=== PATIENT | female | born 1950 | race Caucasian/White ===

== ENCOUNTER 2024-11-21 22:15 | Inpatient (IN) ==
--- NOTE | 2024-11-22 04:06 | History & Physical Report ---
Date of Service November 22, 2024 Assessment & Plan (1) COPD exacerbation: (2) Acute respiratory failure with hypoxia and hypercapnia: (3) Aspiration pneumonia: (4) History of total hip replacement: (5) Severe protein-calorie malnutrition: (6) T2DM (type 2 diabetes mellitus): (7) Macrocytic anemia: Plan 74 year old female with severe COPD presents as a transfer from [facility] with progressive respiratory failure for last 1-2 days. #COPD exacerbation / aspiration pneumonia / acute respiratory failure with hypoxia hypercapnia Duoneb, guaifenesin, incentive spirometer, flutter valve, sputum culture, formoterol/budesonide neb, Incruse Ellipta, ensifentrine, Solu-medrol 40mg IV BID I am unclear why she is on carvedilol but given her severe COPD could consider stopping this as long as EF looks ok therefore will get TTE in AM Consult pulmonology CT being uploaded to synapse not independently reviewed but reportedly concerning for aspiration pneumonia - start Unasyn + azithromycin, repeat CXR ordered Continue BiPAP (increase settings to 12/5) given ongoing respiratory acidosis secondary to hypercapnia, repeat VBG around 8am #Severe protein-calorie malnutrition Stop Jardiance - this medication causes weight loss and should be permanently discontinued Stop simvastatin Analysis Specialist consult Thiamine with AM labs #T2DM Novolog for correction only Consult pharmacy for glycemic control Stop Jardiance as above HbA1C with AM labs #HTN Continue carvedilol and lisinopril (consider discontinuation of carvedilol as above) #Macrocytic anemia B12 and foalte with AM labs VTE Prophylaxis - Lovenox 30mg SQ daily (prescribed BID as outpatient for prophyalxis s/p THR however I believe this was prescribed incorrectly as she has know clot) Diet - NPO (expect ice chips and sips) pending SLT consult Disposition - admit to PCU Admission and Anticipated Discharge Date Admission Date: November 22, 2024 History of Present Illness Primary Care Provider: Julio Cesar eHrbertrand Cherelle Bergeron is a 74 year old female who presents as a transfer from [facility] for acute hypoxic hypercapnic respiratory failure with COPD exacerbation and concern for aspiration pneumonia. She reports two days of generalized illness with feeling sluggish and generalized weakness. While doing physical therapy yesterday she thought she was doing much worse and therefore advised her to go to the ER. She has severe COPD on baseline 2LPM O2 and feels short of breath every now and again but with hindsight this was also worse the last 2 days. She has a productive cough which is clear. Some coughing after drinking just for the last day. No chest pain, abdominal pain, nausea, vomiting, change in bowels. She notes increased swelling of her left leg following hip operation 3 weeks ago. In the ER she had duonebs which helped her breathing significantly. CT was concerning for aspiration pneumonia and she was given ceftriaxone + metronidazole + azithromycin. Given her poor respiratory status with respiratory acidosis secondary to hypercapnia transfer from [facility] was advised and given her psych coordinator are Sue Kwan she requested transfer here. On transfer call it was advised to start IV steroids and she was given Solu-Medrol 60mg IV. She was placed on BiPAP 05/21 with improvement CO2 retention initially VBG pH 7.25, PvCO2 100. Followed by ABG pH 7.30 -> 7.32 -> 7.34, pCO2 82 -> 75 -> 62 She reports taking all her usual medications. Allergies Allergy/AdvReac Type Severity Reaction Status Date / Time Sulfa (Sulfonamide AdvReac Unknown UNKNOWN Verified 11/22/24 04:08 Antibiotics) metformin AdvReac Unknown Verified 11/22/24 04:08 Home Medications Medication Instructions Recorded Confirmed Type carvedilol 12.5 mg tablet 12.5 mg PO BID 03/28/19 11/22/24 History citalopram 20 mg tablet 20 mg PO DAILY 03/28/19 11/22/24 History garlic 1,000 mg capsule 1,000 mg PO DAILY 03/28/19 11/22/24 History nebulizer accessories #1 ea 10/30/20 11/22/24 Rx nebulizers #1 ea 10/30/20 11/22/24 Rx ipratropium 0.5 mg-albuterol 3 mg 3 ml inhalation Q4H PRN COPD #360 12/05/20 11/22/24 Rx (2.5 mg base)/3 mL nebulization mL soln simvastatin 20 mg tablet 20 mg PO HS 01/03/22 11/22/24 History Oxygen Home #1 ea 01/12/24 11/22/24 Rx Portable Oxygen #1 ea 01/12/24 11/22/24 Rx umeclidinium 62.5 mcg-vilanterol 1 inh inhalation DAILY #3 Inhalers 01/12/24 11/22/24 Rx 25 mcg/actuation powdr for inhalation (Anoro Ellipta) Oxygen Home #1 ea 06/02/24 11/22/24 Rx albuterol sulfate 90 mcg/actuation 2 puff inhalation QID PRN 07/25/24 11/22/24 Rx aerosol inhaler shortness of breath or wheezing #8.5 grams empagliflozin 10 mg tablet 10 mg PO DAILY 10/19/24 11/22/24 History (Jardiance) ipratropium 20 mcg-albuterol 100 1 puff inhalation Q6H PRN 10/19/24 11/22/24 Rx mcg/actuation mist for inhalation shortness of breath or wheezing #3 (Combivent Respimat) Inhalers lisinopril 40 mg tablet 20 mg PO DAILY 10/19/24 11/22/24 History ensifentrine 3 mg/2.5 mL 3 mg (2.5 mL) inhalation BID #150 11/08/24 11/22/24 Rx suspension for nebulization mL (Ohtuvayre) ascorbic acid (vitamin C) 500 mg 500 mg PO BID 11/22/24 11/22/24 History tablet (Vitamin C) calcium 500 mg (as 1 tab PO DAILY 11/22/24 11/22/24 History carbonate)-vitamin D3 5 mcg (200 unit) tablet (Oyster Shell Calcium-Vitamin D3) enoxaparin 30 mg/0.3 mL 30 mg subcut BID 11/22/24 11/22/24 History subcutaneous syringe insulin glargine U-300 conc 300 10 unit subcut DAILY 11/22/24 11/22/24 History unit/mL (3 mL) subcutaneous pen (Toujeo Max U-300 SoloStar) tramadol 50 mg tablet 50 mg PO Q4 PRN Pain 11/22/24 11/22/24 History Past Med/Surg History Problem List (Updated 11/22/24 @ 06:02 by Jean-Paul Narayan MD) Macrocytic anemia T2DM (type 2 diabetes mellitus) Severe protein-calorie malnutrition Aspiration pneumonia Acute respiratory failure with hypoxia and hypercapnia Advanced care planning/counseling discussion Multiple pulmonary nodules Hypoxemia Chronic obstructive pulmonary disease T12 compression fracture COPD exacerbation (Acute 10/03/14) Respiratory distress (Acute 10/03/14) Medical History (Updated 11/22/24 @ 06:02 by Jean-Paul Narayan MD) History of poliomyelitis Surgical History (Updated 11/22/24 @ 05:41 by Jean-Paul Narayan MD) History of total hip replacement History of tubal ligation History of appendectomy Family History (Updated 11/15/19 @ 08:48 by Shannon Valle, HAND BENDER) Father COPD (chronic obstructive pulmonary disease) Myocardial infarction Mother COPD (chronic obstructive pulmonary disease) Ovarian cancer Social History (Updated 01/03/22 @ 09:58 by FLAKO Kerns) Smoking Status: Former smoker Tobacco Type: Cigarettes Age Started Using Tobacco: 16; Age Quit Using Tobacco: 55; packs per day: 2; Hx Alcohol Use: Yes marital status: Seatbelt Use: always Review of Systems Review of Systems: All systems reviewed & are unremarkable except as noted in HPI & below Physical Exam Constitutional: well developed and + acute distress; + not well nourished Eyes: + anicteric sclerae; normal pupil size Strabismus present Respiratory: + respiratory distress, + labored breath ing, + uses accessory muscles, able to speak in complete sentences, + tachypneic and + prolonged expiratory phase Auscultation: + rhonchi (throughout) and + wheezes Cardiovascular: Rate/Rhythm: regular rhythm and + tachycardic Heart Sounds: no murmur Extremities: normal capillary refill and + pedal edema (1+ bilaterally equal pitting); no calf tenderness Gastrointestinal (Abdomen): normal bowel sounds, soft, nontender, no hepatosplenomegaly Musculoskeletal: no cyanosis or clubbing, extremities motor strength 5/5 Skin: no rashes, warm and dry Neurologic: moves all extremities and awake; not confused Psychiatric: A+Ox3, euthymic affect Results & Data Results & Data Laboratory Results Outside hospital labs: Hgb 11, WBC 5.8, MCV 107, Neutrophils 5.19, Plt, 275, Na 140, K 4.2, Lactic acid 0.8, HS Troponin I 16 and 19.4, ProBNP 113, Cr 0.7 Diagnostic Findings Outside hospital imaging 12/01/2024: XR Chest 1 view frontal Impression: 1. Hyperexpanded lungs without evident of acute cardiopulmonary disease 2. Hiatal hernia CT angiography Chest w/contrast Impression: 1. Multifocal consolidation involving both lungs, possibly related to aspiration 2. No evidence of pulmonary nodules 3. Moderate pulmonary emphysema 4. Severe chronic right hydronephrosis Code Status & VTE Plan Code Status DNR/DNI per patient wishes consistent with prior discussion in pulmonology note VTE Prophylaxis Plan VTE Prophylaxis will be ordered: Yes Critical Care Time Critical Care Time: Yes Total Critical Care Time: 40 PG Care Time/CCT Total # of Minutes Spent Total Time Spent with Patient: Total time spent is greater than 50% in coordination of care (as documented) at patient's floor/unit and/or counseling patient: Critical Care Time: Yes Total Critical Care Time: 40 Coding Level of Care Code 60647 INT INP/OBS CARE 3/75MIN Diagnoses COPD exacerbation J44.1 Acute respiratory failure with hypoxia and hypercapnia J96.01; J96.02 Aspiration pneumonia J69.0 History of total hip replacement Z96.649 Severe protein-calorie malnutrition E43 T2DM (type 2 diabetes mellitus) E11.9 Macrocytic anemia D53.9 Additional Codes Critical Care Time - Critical Care Time: Yes ([id number])
[2024-11-22 04:14] LABS: Base Excess VBG 9.8 mEq/L; HCO3 VBG 39 mmol/L; Oxygen Saturation VBG < 60.0 %; PCO2 VBG 78 mmHg (38-50); PO2 VBG 23 mmHg; pH VBG 7.31 (7.36-7.41)
[2024-11-22] MEDS ORDERED: GLUCOSE 10 TAB/TUBE PO PRN (04:23)
[2024-11-22] MEDS ORDERED: DEXTROSE 50% 50 ML SYRINGE IV PRN (04:23)
[2024-11-22] MEDS ORDERED: GLUCAGON FOR INJ 1 MG VIAL SQ PRN (04:23)
[2024-11-22] MEDS ORDERED: GLUCOSE 40% GEL 15 GM TUBE PO PRN (04:23)
[2024-11-22 04:24] LABS: Basophils # (auto) 0.02 K/uL (0.00-0.20); Basophils % (auto) 0.3 %; Hematocrit (blood only) 36.2 % (37.0-47.0); Hemoglobin 10.8 g/dl (12.0-16.0); Immature Granulocytes # (auto) 0.02 K/uL (0.01-0.20); Immature Granulocytes % (auto) 0.3 %; Lymphocytes # (auto) 0.35 K/uL (1.20-3.40); Lymphocytes % (auto) 5.6 %; Mean Corpuscular Hgb Conc 29.8 g/dL (32.0-36.0); Mean Corpuscular Volume 107.4 fL (80.0-100.0); Mean Platelet Volume 9.3 fL (9.4-12.4); Monocytes % (auto) 14.3 %; Neutrophils # (auto) 4.99 K/uL (1.40-6.50); Neutrophils % (auto) 79.5 %; Platelet Count 279 K/uL (130-400); RDW Coefficient of Variation 15.9 % (11.5-14.5); RDW Standard Deviation 63.1 fL (36.4-46.3); Red Blood Count 3.37 M/uL (4.20-5.40); White Blood Count 6.28 K/ul (4.8-10.8)
[2024-11-22 04:36] LABS: Albumin Globulin Ratio 1.5 (0.9-2); BUN Creatinine Ratio 40.8 (10-20); Bilirubin,Total 0.4 mg/dl (0.2-1.0); Globulin 2.6 gm/dl (2.5-4.0); Potassium 4.6 mmol/L (3.5-5.1); Total Protein 6.6 gm/dl (6.0-8.3)
[2024-11-22] MEDS: ALBUT/IPRATROP 3MG/0.5MG NEB 3 ML VIAL ONE (04:41)
[2024-11-22] MEDS: ALBUT/IPRATROP 3MG/0.5MG NEB 3 ML VIAL NEB STA (04:41)
[2024-11-22 04:49] LABS: Partial Thromboplastin Ratio 0.9; Partial Thromboplastin Time 25 Seconds (21-31); Prothrombin Time 10.6 Seconds (9.0-12.0)
--- NOTE | 2024-11-22 05:08 | XRay Report ---
EXAM: XR chest 1V portable CLINICAL HISTORY: Pneumonia. TECHNIQUE: An X-ray image of the chest is obtained in AP projection. COMPARISON: prior CT 12/30/2023 FINDINGS: Pulmonary Parenchyma: Accentuated lung markings. No evidence of consolidation, collapse, or focal opacities. No pulmonary nodules are identified. No evidence of pleural effusion or pleural thickening. Heart and Mediastinum: Average cardiac size. No mediastinal widening or masses. No hilar or mediastinal lymphadenopathy. Retro cadiac well defined opacity with air fluid level ( hiatus hernia ). Bony Thorax: Bony thorax appears intact without fractures or deformities. Soft Tissues: Soft tissues overlying the chest wall are unremarkable. IMPRESSION: 1. No gross airspace opacities. 2. Accentuated lung markings, likely secondary to emphysematus changes. 3. Retro cadiac well defined opacity with air fluid level ( hiatus hernia). 4. No significant interval changes. Electronically signed by Amari Miramontes 11-22-2024 05:08 AM
[2024-11-22] MEDS: AMPICILLIN/SULBACTAM SOD 3,000 MG/100 ML BAG IV SCH (06:03)
[2024-11-22] MEDS: INSULIN ASPART PER UNIT CHARGE SC SCH ×2 (06:06→17:15)
[2024-11-22 06:56] LABS: Influenza A virus by PCR Negative (Neg); Influenza B virus by PCR Negative (Neg); RSV by PCR Negative (Neg); SARS CoV2 RNA(COVID-19) Ceph NEGATIVE (Negative)
[2024-11-22] MEDS: ALBUT/IPRATROP 3MG/0.5MG NEB 3 ML VIAL NEB SCH (07:01)
--- NOTE | 2024-11-22 07:27 | Pulmonary Consultation ---
Date of Consultation November 22, 2024 Assessment & Plan (1) COPD exacerbation: (2) Respiratory distress: (3) Acute on chronic respiratory failure with hypoxia and hypercapnia: (4) Severe protein-calorie malnutrition: (5) Advanced care planning/counseling discussion: Plan IMPRESSION: 74-year-old female with a history of very severe COPD, exertional hypoxemia, multiple pulmonary nodules who is admitted in the setting of acute on chronic respiratory failure with hypoxia and hypercapnia with concerns for ongoing aspiration. RECOMMENDATIONS: 1. COPD exacerbation -unable to review labs. Would recommend full respiratory panel to assess for possible sources of the patient's respiratory distress. Chest x-ray without overt infiltrative process noted. She is bronchospastic on exam this morning. Unfortunately, as noted in the outpatient setting, the patient is an end-stage process including pulmonary cachexia, chronic hypoxia, and now with CO2 retention. Agree with nebulized forms of therapy including budesonide, Perforomist, DuoNebs, and hypertonic saline to help with airway clearing. Additionally, given her poor pulmonary status with an FEV1 of 21%, and combination with her CO2 retention, she would likely benefit from AVAPS therapy moving forward. Order placed at this time. She can wear this with sleep, naps, and with any respiratory distress. I did review the CTA from the outside institution dated 11/21/2024. It is not overly impressive for significant infiltrative process. She does have impressive emphysematous lung changes of which we were aware. No dense consolidation consistent with significant aspiration pneumonitis/pneumonia. Due to chronic respiratory failure consequent to COPD, patient now requires a noninvasive home ventilator. Bilevel therapy with and without a rate would be ineffective as patient requires a volume targeted mode. Ventilation is required to decrease work of breathing and improve pulmonary status. Interruption of ventilator support would lead to decline of health status. NIMV settings should be AVAPS-AE; Breath rate: auto; Inspiratory time:auto; Sigh: off; PS min: 5; PS max 20; EPAP min: 5; EPAP max: 20; AVAPS rate: 20 During sleep and as needed. 2. Respiratory Distress -in the setting of COPD exacerbation. Agree with pulmonary toileting as above. AVAPS to offload work of breathing. 3. Possible aspiration -agree with FEDERAL APPELLATE LAW CLERK evaluation for management moving forward. 4. Pulmonary nodules - Multiple pulmonary nodules previously appreciated, however new suspicious nodule noted in the RIGHT lower lobe measuring 7 mm and spiculated in appearance. Most recent follow-up CT shows stability of this area and likely more employer relations representative of scarring in the lung which makes more sense. She thankfully is without any concerning beta symptoms or other worsening infiltrative findings on CT. Will arrange for follow-up CT in 1 years time. Order placed previously in the outpatient setting. 5. Advance care planning - Per office visit discussion on 10/19/2024: Given the patient's significant lung dysfunction in the setting of advanced, end stage COPD, I did elect to have a discussion with the patient within the presence of her regarding advance care planning moving forward, especially in light of her recent hospitalization. I did discuss with her that I am concerned that if her pulmonary status were to decline and necessitate the need for endotracheal intubation with mechanical ventilator, that I am genuinely concerned that she would be difficult to liberate from the ventilator and possibly even require advanced treatment up to and including tracheostomy and care home facility placement. Additionally, I reviewed with her that if her heart were to stop beating and require heroics, that even in the event that we were able to resuscitate her heart, the damage done to her chest and lungs would likely be catastrophic given her current state. She acknowledges this and mentions that she and her do have paperwork completed. I encouraged them to review their documents to make sure that they are up-to-date and in line with their wishes moving forward. Per discussion today, she reiterates DNR/DNI status. Unfortunately, the patient is also sustained a hip fracture secondary to fall within the last few weeks. I am generally concerned that this represents a continued decline in the patient's functional status. Low threshold for palliative consultation for goals of care planning moving forward. This may also be beneficial for management of her declining respiratory status moving forward as well. Thank you for allowing us to participate in the care of this pleasant patient. Pulmonary medicine will continue to follow along. Supervising Physician Co-Signing Physician Notes Patient seen and examined. EMR reviewed. Agree with assessment plan as noted by STACEY above. Will continue to follow. Prognosis guarded History of Present Illness Reason for Consultation: Respiratory Failure, COPD Requesting Physician: Dr. Narayan Attending Physician: Bossman Ross MD History of Present Illness Patient is a 74-year-old female who is well-known to me in the outpatient clinic with a significant history of severe, end-stage COPD, chronic hypoxia on 2 L nasal cannula at all times, and multiple pulmonary nodules who presented to the [facility] emergency department yesterday with an abrupt onset of shortness of breath, cough, and respiratory distress. She was seen and evaluated there and placed on BiPAP and received antibiotics as well as steroids and nebulizer treatments. She was transferred to [facility] for continuation of care given her primary roller mechanic group is here. She continued with BiPAP throughout the night. She is hypercarbic on VBG. Upon evaluation this morning, the patient is awake, alert, and oriented. She is complaining of dyspnea at rest. No chest pain or palpitations. She reports she is coughing up secretions, but unable to completely clear them. She has not been sick. She recently was hospitalized 3 weeks ago after a fall resulting in LEFT-sided hip fracture. She is status post orthopedic intervention and rehab stay. She had just returned home yesterday prior to her symptoms developing. She feels better this morning. She continues with a cough. She is still somewhat dyspneic at rest. She remains wheezy. Allergies Allergy/AdvReac Type Severity Reaction Status Date / Time Sulfa (Sulfonamide AdvReac Unknown UNKNOWN Verified 11/22/24 04:08 Antibiotics) metformin AdvReac Unknown Verified 11/22/24 04:08 Home Medications Medication Instructions Recorded Confirmed Type carvedilol 12.5 mg tablet 12.5 mg PO BID 03/28/19 11/22/24 History citalopram 20 mg tablet 20 mg PO DAILY 03/28/19 11/22/24 History garlic 1,000 mg capsule 1,000 mg PO DAILY 03/28/19 11/22/24 History nebulizer accessories #1 ea 10/30/20 11/22/24 Rx nebulizers #1 ea 10/30/20 11/22/24 Rx ipratropium 0.5 mg-albuterol 3 mg 3 ml inhalation Q4H PRN COPD #360 12/05/20 11/22/24 Rx (2.5 mg base)/3 mL nebulization mL soln simvastatin 20 mg tablet 20 mg PO HS 01/03/22 11/22/24 History Oxygen Home #1 ea 01/12/24 11/22/24 Rx Portable Oxygen #1 ea 01/12/24 11/22/24 Rx umeclidinium 62.5 mcg-vilanterol 1 inh inhalation DAILY #3 Inhalers 01/12/24 11/22/24 Rx 25 mcg/actuation powdr for inhalation (Anoro Ellipta) Oxygen Home #1 ea 06/02/24 11/22/24 Rx albuterol sulfate 90 mcg/actuation 2 puff inhalation QID PRN 07/25/24 11/22/24 Rx aerosol inhaler shortness of breath or wheezing #8.5 grams empagliflozin 10 mg tablet 10 mg PO DAILY 10/19/24 11/22/24 History (Jardiance) ipratropium 20 mcg-albuterol 100 1 puff inhalation Q6H PRN 10/19/24 11/22/24 Rx mcg/actuation mist for inhalation shortness of breath or wheezing #3 (Combivent Respimat) Inhalers lisinopril 40 mg tablet 20 mg PO DAILY 10/19/24 11/22/24 History ensifentrine 3 mg/2.5 mL 3 mg (2.5 mL) inhalation BID #150 11/08/24 11/22/24 Rx suspension for nebulization mL (Ohtuvayre) ascorbic acid (vitamin C) 500 mg 500 mg PO BID 11/22/24 11/22/24 History tablet (Vitamin C) calcium 500 mg (as 1 tab PO DAILY 11/22/24 11/22/24 History carbonate)-vitamin D3 5 mcg (200 unit) tablet (Oyster Shell Calcium-Vitamin D3) enoxaparin 30 mg/0.3 mL 30 mg subcut BID 11/22/24 11/22/24 History subcutaneous syringe insulin glargine U-300 conc 300 10 unit subcut DAILY 11/22/24 11/22/24 History unit/mL (3 mL) subcutaneous pen (Toujeo Max U-300 SoloStar) tramadol 50 mg tablet 50 mg PO Q4 PRN Pain 11/22/24 11/22/24 History Patient History Medical History (Updated 11/22/24 @ 09:00 by Evan Jansen PA-C) History of poliomyelitis Surgical History (Updated 11/22/24 @ 05:41 by Jean-Paul Narayan MD) History of total hip replacement History of tubal ligation History of appendectomy Family History (Updated 11/15/19 @ 08:48 by Shannon Valle, MINGO) Father COPD (chronic obstructive pulmonary disease) Myocardial infarction Mother COPD (chronic obstructive pulmonary disease) Ovarian cancer Social History (Updated 01/03/22 @ 09:58 by FLAKO Kerns) Smoking Status: Former smoker Tobacco Type: Cigarettes Age Started Using Tobacco: 16; Age Quit Using Tobacco: 55; packs per day: 2; Second Hand Exposure: No; Do You Dip or Chew Tobacco: No; Tobacco Cessation Education Requested by Patient: No Hx Alcohol Use: No Hx Substance Use: No Preferred Language: Mauritanian Communication Ability: Effective 3D Technologist Required: No Beliefs That Will Affect Care: None marital status: Current Living Situation: Spouse Other Information That Helps Us Care for You: No Feels Safe at Home: Yes Safety Concerns: Feels Safe At This Time Seatbelt Use: always Assistive Devices: Glasses, Hearing Aid - Bilateral, Oxygen - Continuous, Walker and Wheelchair Review of Systems Review of Systems: A complete 10 point review of systems was reviewed with the patient with pertinent positives and negatives as per history of present illness. All else were negative. Physical Exam Physical Exam: VITAL SIGNS Vital signs and nursing notes were reviewed. GENERAL 74-year-old cachectic appearing female appearing her stated age who is in mild respiratory distress. Communicates well with provider and answers questions appropriately. SKIN Without rashes or lesions. NOSE Midline and without cyanosis. MOUTH/OROPHARYNX Without perioral cyanosis. NECK Kyphotic appearing LUNGS Dyspnea at rest. Conversationally dyspneic. Chest wall evaluation demonstrates increased chest wall A:P diameter. Auscultation reveals scant wheezes throughout. Distant breath sounds. CARDIAC RRR with S1/S2. No murmur, rubs, or gallops appreciated. ABDOMEN Abdominal inspection demonstrates a flat abdomen. BS normoactive all four quadrants. No tenderness, palpable masses, or ascites noted. EXTREMITIES Nail clubbing not present. No peripheral cyanosis. No pretibial edema present. +3/5 radial palpated throughout. PSYCH A&Ox3 and cooperates fully with examiner. Pt is very pleasant and interacts well with examiner. Results & Data Results & Data Vital Signs (Past 12 Hours) Vital Signs Temp Pulse Pulse Resp BP Pulse Ox O2 Del Method 11/22/24 07:03 113 H 30 H 93 11/22/24 07:01 113 H 30 H 93 BiPAP 11/22/24 04:28 113 H 30 H 92 11/22/24 04:28 113 H 30 H 93 BiPAP 11/22/24 03:44 112 H 11/22/24 03:37 36.7 C 94 H 20 140/72 96 BiPAP 11/22/24 03:28 BiPAP 11/22/24 02:28 112 H 30 H 98 FiO2 11/22/24 07:03 40 11/22/24 07:01 40 11/22/24 04:28 40 11/22/24 04:28 40 11/22/24 03:44 11/22/24 03:37 11/22/24 03:28 11/22/24 02:28 30 PG Care Time/CCT Total # of Minutes Spent Total Time Spent with Patient: Total time spent is greater than 50% in coordination of care (as documented) at patient's floor/unit and/or counseling patient: Coding Level of Care Code 86971 INT INP/OBS CARE 2/55MIN Diagnoses COPD exacerbation J44.1 Respiratory distress R06.03 Acute on chronic respiratory failure with hypoxia and hypercapnia J96.21; J96.22 Severe protein-calorie malnutrition E43 Advanced care planning/counseling discussion Z71.89
[2024-11-22 07:42] LABS: Base Excess VBG 6.4 mEq/L; HCO3 VBG 35 mmol/L; Oxygen Saturation VBG 73.1 %; PCO2 VBG 72 mmHg (38-50); PO2 VBG 44 mmHg
[2024-11-22] MEDS ORDERED: methylPREDNISolone 125 MG/2 ML VIAL IV SCH (09:00)
[2024-11-22] MEDS: UMECLIDINIUM BROMIDE 62.5MCG/BLISTER 7 PUFFS/INHALER INH SCH (09:08)
[2024-11-22] MEDS: methylPREDNISolone 40 MG in SYRINGE 0 ML IV SCH (09:08)
[2024-11-22] MEDS: ENOXAPARIN INJ 30 MG/0.3 ML SYR SQ SCH (10:50)
[2024-11-22] MEDS: carvediloL 12.5 MG TAB PO SCH (10:50)
[2024-11-22] MEDS: guaiFENesin 600 MG TABCR PO SCH (10:50)
[2024-11-22] MEDS: CITALOPRAM 20 MG TAB PO SCH (10:50)
[2024-11-22] MEDS: lisinopril 20 MG TAB PO SCH (10:50)
[2024-11-22] MEDS: AZITHROMYCIN 250 MG TAB PO SCH (10:50)
[2024-11-22] MEDS: ACETAMINOPHEN 500 MG TAB PO PRN (11:48)
--- NOTE | 2024-11-22 12:31 | Hospitalist Progress Note ---
Date of Service November 22, 2024 Assessment & Plan (1) COPD exacerbation: (2) Acute respiratory failure with hypoxia and hypercapnia: (3) Aspiration pneumonia: (4) History of total hip replacement: (5) Severe protein-calorie malnutrition: (6) T2DM (type 2 diabetes mellitus): (7) Macrocytic anemia: Plan 74 year old female with severe COPD presents as a transfer from [facility] with progressive respiratory failure for last 1-2 days. #COPD exacerbation / aspiration pneumonia / acute respiratory failure with hypoxia hypercapnia Duoneb, guaifenesin, incentive spirometer, flutter valve, sputum culture, formoterol/budesonide neb, Incruse Ellipta, ensifentrine, Solu-medrol 40mg IV BID I am unclear why she is on carvedilol but given her severe COPD could consider stopping this as long as EF looks ok therefore will get TTE in AM Consult pulmonology CT being uploaded to synapse not independently reviewed but reportedly concerning for aspiration pneumonia - start Unasyn + azithromycin, repeat CXR ordered Continue BiPAP (increase settings to 12/5) given ongoing respiratory acidosis secondary to hypercapnia, repeat VBG around 8am #Severe protein-calorie malnutrition Stop Jardiance - this medication causes weight loss and should be permanently discontinued Stop simvastatin [employer] consult Thiamine with AM labs #T2DM Novolog for correction only Consult pharmacy for glycemic control Stop Jardiance as above HbA1C with AM labs #HTN Continue carvedilol and lisinopril (consider discontinuation of carvedilol as above) #Macrocytic anemia B12 and foalte with AM labs VTE Prophylaxis - Lovenox 30mg SQ daily (prescribed BID as outpatient for prophyalxis s/p THR however I believe this was prescribed incorrectly as she has know clot) Diet - NPO (expect ice chips and sips) pending SLT consult Disposition - admit to PCU Admission and Anticipated Discharge Date Admission Date: November 22, 2024 Results & Data Results & Data Vital Signs (Past 12 Hours) Vital Signs Temp Pulse Pulse Resp BP Pulse Ox O2 Del Method 11/22/24 11:55 36.7 C 105 H 22 146/70 H 88 L Nasal Cannula 11/22/24 10:06 113 H 22 97 Nasal Cannula 11/22/24 09:19 Nasal Cannula 11/22/24 07:12 36.4 C L 106 H 20 131/70 100 BiPAP 11/22/24 07:03 113 H 30 H 93 11/22/24 07:01 113 H 30 H 93 BiPAP 11/22/24 04:28 113 H 30 H 92 11/22/24 04:28 113 H 30 H 93 BiPAP 11/22/24 03:44 112 H 11/22/24 03:37 36.7 C 94 H 20 140/72 96 BiPAP 11/22/24 03:28 BiPAP 11/22/24 02:28 112 H 30 H 98 O2 Flow Rate FiO2 11/22/24 11:55 2 11/22/24 10:06 2 11/22/24 09:19 11/22/24 07:12 11/22/24 07:03 40 11/22/24 07:01 40 11/22/24 04:28 40 11/22/24 04:28 40 11/22/24 03:44 11/22/24 03:37 11/22/24 03:28 11/22/24 02:28 30 Laboratory Results Laboratory Results - last 24 hr 11/22/24 11/22/24 11/22/24 03:55 04:04 04:05 WBC 6.28 RBC 3.37 L Hgb 10.8 L Hct 36.2 L MCV 107.4 H MCH 32.0 MCHC 29.8 L RDW Std Deviation 63.1 H RDW Coeff of [place] 15.9 H Plt Count 279 MPV 9.3 L Immature Gran % (Auto) 0.3 Neut % (Auto) 79.5 Lymph % (Auto) 5.6 [place] % (Auto) 14.3 Eos % (Auto) 0.0 Baso % (Auto) 0.3 Neut # (Auto) 4.99 Lymph # (Auto) 0.35 L [place] # (Auto) 0.90 H Eos # (Auto) 0.00 Baso # (Auto) 0.02 Immature Gran # (Auto) 0.02 PT 10.6 INR 1.0 APTT 25 PTT Ratio 0.9 VBG pH 7.31 L VBG pCO2 78 H VBG pO2 23 VBG HCO3 39 VBG O2 Saturation < 60.0 VBG Base Excess 9.8 Sodium 145 Potassium 4.6 Chloride 101 Carbon Dioxide 37 H Anion Gap 7 BUN 29 H Creatinine 0.71 Est Cr Clr Drug Dosing 53.0 eGFR 89.17 BUN/Creatinine Ratio 40.8 H Glucose 87 POC Glucose 86 Calcium 10.0 Magnesium 2.0 Total Bilirubin 0.4 AST 24 ALT 24 Alkaline Phosphatase 124 H B-Natriuretic Peptide 199 H Total Protein 6.6 Albumin 4.0 Globulin 2.6 Albumin/Globulin Ratio 1.5 Procalcitonin 0.87 H Nasal Screen MRSA (PCR) Adenovirus (PCR) B. pertussis DNA (PCR) B.parapertussis DNA PCR C. pneumoniae DNA (PCR) Coronavirus OC43 (PCR) Coronavirus HKU1 (PCR) Coronavirus 229E (PCR) SARS-CoV-2 (PCR) Coronavirus NL63 (PCR) Human Metapneumovir PCR Influenza Type A (PCR) Influenza Type B (PCR) M. pneumoniae (PCR) Parainfluenza 1 (PCR) Parainfluenza 2 (PCR) Parainfluenza 3 (PCR) Parainfluenza 4 (PCR) RSV (RT-PCR) RSV (PCR) Entero/Rhino (PCR) 11/22/24 11/22/24 11/22/24 05:00 06:01 07:26 WBC RBC Hgb Hct MCV MCH MCHC RDW Std Deviation RDW Coeff of [place] Plt Count MPV Immature Gran % (Auto) Neut % (Auto) Lymph % (Auto) [place] % (Auto) Eos % (Auto) Baso % (Auto) Neut # (Auto) Lymph # (Auto) [place] # (Auto) Eos # (Auto) Baso # (Auto) Immature Gran # (Auto) PT INR APTT PTT Ratio VBG pH 7.30 L VBG pCO2 72 H VBG pO2 44 VBG HCO3 35 VBG O2 Saturation 73.1 VBG Base Excess 6.4 Sodium Potassium Chloride Carbon Dioxide Anion Gap BUN Creatinine Est Cr Clr Drug Dosing eGFR BUN/Creatinine Ratio Glucose POC Glucose 99 Calcium Magnesium Total Bilirubin AST ALT Alkaline Phosphatase B-Natriuretic Peptide Total Protein Albumin Globulin Albumin/Globulin Ratio Procalcitonin Nasal Screen MRSA (PCR) Negative Adenovirus (PCR) B. pertussis DNA (PCR) B.parapertussis DNA PCR C. pneumoniae DNA (PCR) Coronavirus OC43 (PCR) Coronavirus HKU1 (PCR) Coronavirus 229E (PCR) SARS-CoV-2 (PCR) NEGATIVE Coronavirus NL63 (PCR) Human Metapneumovir PCR Influenza Type A (PCR) Negative Influenza Type B (PCR) Negative M. pneumoniae (PCR) Parainfluenza 1 (PCR) Parainfluenza 2 (PCR) Parainfluenza 3 (PCR) Parainfluenza 4 (PCR) RSV (RT-PCR) Negative RSV (PCR) Entero/Rhino (PCR) 11/22/24 11/22/24 10:30 11:21 WBC RBC Hgb Hct MCV MCH MCHC RDW Std Deviation RDW Coeff of [place] Plt Count MPV Immature Gran % (Auto) Neut % (Auto) Lymph % (Auto) [place] % (Auto) Eos % (Auto) Baso % (Auto) Neut # (Auto) Lymph # (Auto) [place] # (Auto) Eos # (Auto) Baso # (Auto) Immature Gran # (Auto) PT INR APTT PTT Ratio VBG pH VBG pCO2 VBG pO2 VBG HCO3 VBG O2 Saturation VBG Base Excess Sodium Potassium Chloride Carbon Dioxide Anion Gap BUN Creatinine Est Cr Clr Drug Dosing eGFR BUN/Creatinine Ratio Glucose POC Glucose 121 H Calcium Magnesium Total Bilirubin AST ALT Alkaline Phosphatase B-Natriuretic Peptide Total Protein Albumin Globulin Albumin/Globulin Ratio Procalcitonin Nasal Screen MRSA (PCR) Adenovirus (PCR) Pending B. pertussis DNA (PCR) Pending B.parapertussis DNA PCR Pending C. pneumoniae DNA (PCR) Pending Coronavirus OC43 (PCR) Pending Coronavirus HKU1 (PCR) Pending Coronavirus 229E (PCR) Pending SARS-CoV-2 (PCR) Pending Coronavirus NL63 (PCR) Pending Human Metapneumovir PCR Pending Influenza Type A (PCR) Influenza Type B (PCR) Pending M. pneumoniae (PCR) Pending Parainfluenza 1 (PCR) Pending Parainfluenza 2 (PCR) Pending Parainfluenza 3 (PCR) Pending Parainfluenza 4 (PCR) Pending RSV (RT-PCR) RSV (PCR) Pending Entero/Rhino (PCR) Pending Diagnostic Findings Chest X-Ray 11/22/24 03:45 EXAM: XR chest 1V portable CLINICAL HISTORY: Pneumonia. TECHNIQUE: An X-ray image of the chest is obtained in AP projection. COMPARISON: prior CT 12/30/2023 FINDINGS: Pulmonary Parenchyma: Accentuated lung markings. No evidence of consolidation, collapse, or focal opacities. No pulmonary nodules are identified. No evidence of pleural effusion or pleural thickening. Heart and Mediastinum: Average cardiac size. No mediastinal widening or masses. No hilar or mediastinal lymphadenopathy. Retro cadiac well defined opacity with air fluid level ( hiatus hernia ). Bony Thorax: Bony thorax appears intact without fractures or deformities. Soft Tissues: Soft tissues overlying the chest wall are unremarkable. IMPRESSION: 1. No gross airspace opacities. 2. Accentuated lung markings, likely secondary to emphysematus changes. 3. Retro cadiac well defined opacity with air fluid level ( hiatus hernia). 4. No significant interval changes. Electronically signed by Amari Miramontes 11-22-2024 05:08 AM PG Care Time/CCT Total # of Minutes Spent Total Time Spent with Patient: Total time spent is greater than 50% in coordination of care (as documented) at patient's floor/unit and/or counseling patient: Coding Diagnoses COPD exacerbation J44.1 Acute respiratory failure with hypoxia and hypercapnia J96.01; J96.02 Aspiration pneumonia J69.0 History of total hip replacement Z96.649 Severe protein-calorie malnutrition E43 T2DM (type 2 diabetes mellitus) E11.9 Macrocytic anemia D53.9
[2024-11-22 13:18] LABS: Adenovirus PCR Not Detected (NotDetected); Bordetella parapertussis PCR Not Detected (NotDetected); Bordetella pertussis PCR Not Detected (NotDetected); Chlamydia pneumoniae PCR Not Detected (NotDetected); Coronavirus 229E PCR Not Detected (NotDetected); Coronavirus CoV-2 (COVID19)PCR Not Detected (NotDetected); Coronavirus HKU1 PCR Not Detected (NotDetected); Coronavirus NL63 PCR Not Detected (NotDetected); Coronavirus OC43PCR Not Detected (NotDetected); Human Metapneumovirus PCR Not Detected (NotDetected); Influenza A PCR Not Detected (NotDetected); Influenza B PCR Not Detected (NotDetected); Mycoplasma pneumoniae PCR Not Detected (NotDetected); Parainfluenza Virus 1 PCR Not Detected (NotDetected); Parainfluenza Virus 2 PCR Not Detected (NotDetected); Parainfluenza Virus 3 PCR DETECTED (NotDetected); Parainfluenza Virus 4 PCR Not Detected (NotDetected); Respiratory Syncytial VirusPCR Not Detected (NotDetected); Rhinovirus/Enterovirus PCR Not Detected (NotDetected)
[2024-11-22] MEDS ORDERED: Nursing to Pharmacy Communication SCH (14:30)
--- NOTE | 2024-11-22 14:44 | XCELERA ---
[id number]
--- NOTE | 2024-11-22 15:06 | Palliative Care Consultation ---
Date of Consultation November 22, 2024 Assessment & Plan (1) Left hip pain: ofirmev 485mg IV q8h for 3 days then begin transition to PO Intolerant to opioids, does not want to use tramadol if she does not need declines MS trial for severe pain and dyspnea (2) Dyspnea and respiratory abnormalities: (3) Advanced care planning/counseling discussion: ACP face to face x 60min with pt and at bedside COPD overview discussed Reviewed prior d/w pulm She reaffirms DNR/DNI she is only wanting to return home and will care for her they have a daughter who is a chemistry research assistant that can also help we spoke about home health options says they have home PT/OT that just started prior to this admission We discussed standard HH vs hospice. I provided education about the hospice benefit: an interdisciplinary program offered by nurses, nurses aides, social workers, chaplains and a biomedical equipment technician for patients with a terminal condition and a life expectancy of less than 6 months. This is covered by Medicare at 100%/no out of pocket expense to patient and all meds/supplies needed by patient for the reason they are on hospice are paid for/covered by hospice. The goal is assure quality of life of the patient in their home setting (home, longterm, inpatient hospice setting) by providing symptoms management, psychosocial and spiritual support. However, they cannot offer 24 hours care and if the family is unable to provide that care, they will have to consider personal care with out of pocket cost vs. longterm placement. We discussed the goals of hospice as a patient service and the goals of care; we discussed EOL trajectories and transitions pipe the emotional impact of realizing mortality as a concrete reality from prior abstract considerations. Pt was reassured that no matter where they are along this trajectory, they are not alone - their medical team will remain by their side through their journey. Discussed the pros/cons of accepting help when especially weakened and distressed by pain-which would also help provide relief/decrease caregiver burden/strain. she declines hospice She was very anxious with discussion about home health and home hospice she states she is not ready to think about hospice and feels she has more time (4) Palliative care by specialist: Introduced Palliative Medicine and explained our role in patient's care. Patient and/or family were receptive to palliative services for goals of care discussions. Reviewed we are different from hospice, a home health nurse visiting service. Plan She states she wants to speak with pulm re status of her COPD and reccs for HH vs hospice She politely declined hospice at this time I have added IV Ofirmev on a q8h schedule (dose adjusted for weight) to improve pain relief, she does not want to take opioids Otherwise will follow more peripherally as she did not feel daily engagement was needed for now, she admits feeling overwhelmed hearing she is appropriate for palliative medicine engagement and states she is not ready to explore the issues right now. Thank you for allowing us to participate in the ongoing care of this patient. Please page with any additional concerns. Ramon Suarez DNP Director, Palliative Medicine History of Present Illness Reason for Consultation: [facility] Attending Physician: Bossman Ross MD History of Present Illness end stage COPD new left hip fx s/p fixation at bedside recent pulm clinic visit-she advised she has completed AD, does not want CPR, reaffirms DNR/DNI Allergies Allergy/AdvReac Type Severity Reaction Status Date / Time Sulfa (Sulfonamide AdvReac Unknown UNKNOWN Verified 11/22/24 04:08 Antibiotics) metformin AdvReac Unknown Verified 11/22/24 04:08 Home Medications Medication Instructions Recorded Confirmed Type carvedilol 12.5 mg tablet 12.5 mg PO BID 03/28/19 11/22/24 History citalopram 20 mg tablet 20 mg PO DAILY 03/28/19 11/22/24 History garlic 1,000 mg capsule 1,000 mg PO DAILY 03/28/19 11/22/24 History nebulizer accessories #1 ea 10/30/20 11/22/24 Rx nebulizers #1 ea 10/30/20 11/22/24 Rx ipratropium 0.5 mg-albuterol 3 mg 3 ml inhalation Q4H PRN COPD #360 12/05/20 11/22/24 Rx (2.5 mg base)/3 mL nebulization mL soln simvastatin 20 mg tablet 20 mg PO HS 01/03/22 11/22/24 History Oxygen Home #1 ea 01/12/24 11/22/24 Rx Portable Oxygen #1 ea 01/12/24 11/22/24 Rx umeclidinium 62.5 mcg-vilanterol 1 inh inhalation DAILY #3 Inhalers 01/12/24 11/22/24 Rx 25 mcg/actuation powdr for inhalation (Anoro Ellipta) Oxygen Home #1 ea 06/02/24 11/22/24 Rx albuterol sulfate 90 mcg/actuation 2 puff inhalation QID PRN 07/25/24 11/22/24 Rx aerosol inhaler shortness of breath or wheezing #8.5 grams empagliflozin 10 mg tablet 10 mg PO DAILY 10/19/24 11/22/24 History (Jardiance) ipratropium 20 mcg-albuterol 100 1 puff inhalation Q6H PRN 10/19/24 11/22/24 Rx mcg/actuation mist for inhalation shortness of breath or wheezing #3 (Combivent Respimat) Inhalers lisinopril 40 mg tablet 20 mg PO DAILY 10/19/24 11/22/24 History ensifentrine 3 mg/2.5 mL 3 mg (2.5 mL) inhalation BID #150 11/08/24 11/22/24 Rx suspension for nebulization mL (Ohtuvayre) ascorbic acid (vitamin C) 500 mg 500 mg PO BID 11/22/24 11/22/24 History tablet (Vitamin C) calcium 500 mg (as 1 tab PO DAILY 11/22/24 11/22/24 History carbonate)-vitamin D3 5 mcg (200 unit) tablet (Oyster Shell Calcium-Vitamin D3) enoxaparin 30 mg/0.3 mL 30 mg subcut BID 11/22/24 11/22/24 History subcutaneous syringe insulin glargine U-300 conc 300 10 unit subcut DAILY 11/22/24 11/22/24 History unit/mL (3 mL) subcutaneous pen (Toujeo Max U-300 SoloStar) tramadol 50 mg tablet 50 mg PO Q4 PRN Pain 11/22/24 11/22/24 History Patient History Medical History (Updated 11/22/24 @ 15:15 by July Suarez DNP) History of poliomyelitis Surgical History (Updated 11/22/24 @ 05:41 by Jean-Paul Narayan MD) History of total hip replacement History of tubal ligation History of appendectomy Family History (Updated 11/15/19 @ 08:48 by Shannon Valle, MINGO) Father COPD (chronic obstructive pulmonary disease) Myocardial infarction Mother COPD (chronic obstructive pulmonary disease) Ovarian cancer Social History (Updated 01/03/22 @ 09:58 by FLAKO Kerns) Smoking Status: Former smoker Tobacco Type: Cigarettes Age Started Using Tobacco: 16; Age Quit Using Tobacco: 55; packs per day: 2; Second Hand Exposure: No; Do You Dip or Chew Tobacco: No; Tobacco Cessation Education Requested by Patient: No Hx Alcohol Use: No Hx Substance Use: No Preferred Language: [place] Communication Ability: Effective Animal Therapist Required: No Beliefs That Will Affect Care: None marital status: Current Living Situation: Spouse Other Information That Helps Us Care for You: No Feels Safe at Home: Yes Safety Concerns: Feels Safe At This Time Seatbelt Use: always Assistive Devices: Glasses, Hearing Aid - Bilateral, Oxygen - Continuous, Walker and Wheelchair Review of Systems Review of Systems: All systems reviewed & are unremarkable except as noted in Subjective Physical Exam Constitutional: + acute distress, + ill appearing, + fra il appearing and + malnourished Eyes: PERRL, conjunctivae normal, anicteric sclerae ENMT: Mouth: + dry oral mucous membranes and + poor dentition Neck: trachea midline, no thyromegaly Respiratory: + labored breathing, + uses accessory mu scles, + cough, + prolonged expiratory phase, + pursed lip breathing and symmetric chest movement; + not able to speak in complete sentence Auscultation: + diminished lung sounds and + wheezes Cardiovascular: Rate/Rhythm: + tachycardic Gastrointestinal (Abdomen): Inspection/Auscultation: abdomen normal to inspection and normal bowel sounds; abdomen not distended Musculoskeletal: gen weakness Skin: + turgor decreased and + dry skin Neurologic: AAOx3 Psychiatric: Orientation: alert and oriented x 3 Apperance: + disheveled Eye Contact: + fair eye contact Motor Behavior: no abnormal motor movements Speech: + pressured speech Affect: + anxious affect Mood: + anxious mood Estimated Intelligence: consistent with education level Insight: good insight Judgment: good judgement Results & Data Vital Signs (Past 12 Hours) Vital Signs Temp Pulse Pulse Resp BP Pulse Ox O2 Del Method 11/22/24 11:55 36.7 C 105 H 22 146/70 H 88 L Nasal Cannula 11/22/24 10:06 113 H 22 97 Nasal Cannula 11/22/24 09:19 Nasal Cannula 11/22/24 07:12 36.4 C L 106 H 20 131/70 100 BiPAP 11/22/24 07:03 113 H 30 H 93 11/22/24 07:01 113 H 30 H 93 BiPAP 11/22/24 04:28 113 H 30 H 92 11/22/24 04:28 113 H 30 H 93 BiPAP 11/22/24 03:44 112 H 11/22/24 03:37 36.7 C 94 H 20 140/72 96 BiPAP 11/22/24 03:28 BiPAP O2 Flow Rate FiO2 11/22/24 11:55 2 11/22/24 10:06 2 11/22/24 09:19 11/22/24 07:12 11/22/24 07:03 40 11/22/24 07:01 40 11/22/24 04:28 40 11/22/24 04:28 40 11/22/24 03:44 11/22/24 03:37 11/22/24 03:28 Laboratory Results 11/22/24 11/22/24 11/22/24 Range/Units 11:21 10:30 07:26 WBC (4.8-10.8) K/ul RBC (4.20-5.40) M/uL Hgb (12.0-16.0) g/dl Hct (37.0-47.0) % MCV (80.0-100.0) fL MCH (25.0-34.0) pg MCHC (32.0-36.0) g/dL RDW Std Deviation (36.4-46.3) fL RDW Coeff of [place] (11.5-14.5) % Plt Count (130-400) K/uL MPV (9.4-12.4) fL Immature Gran % (Auto) % Neut % (Auto) % Lymph % (Auto) % [place] % (Auto) % Eos % (Auto) % Baso % (Auto) % Neut # (Auto) (1.40-6.50) K/uL Lymph # (Auto) (1.20-3.40) K/uL [place] # (Auto) (0.11-0.59) K/uL Eos # (Auto) (0.00-0.50) K/uL Baso # (Auto) (0.00-0.20) K/uL Immature Gran # (Auto) (0.01-0.20) K/uL PT (9.0-12.0) Seconds INR (0.9-1.1) APTT (21-31) Seconds PTT Ratio VBG pH 7.30 L (7.36-7.41) VBG pCO2 72 H (38-50) mmHg VBG pO2 44 mmHg VBG HCO3 35 mmol/L VBG O2 Saturation 73.1 % VBG Base Excess 6.4 mEq/L Sodium (136-145) mmol/L Potassium (3.5-5.1) mmol/L Chloride (98-107) mmol/L Carbon Dioxide (21-32) mmol/L Anion Gap (3-11) BUN (6-23) mg/dl Creatinine (0.6-1.2) mg/dl Est Cr Clr Drug Dosing ml/min eGFR BUN/Creatinine Ratio (10-20) Glucose (70-99(Fasting)) mg/dl POC Glucose 121 H (70-99) mg/dl Calcium (8.6-10.3) mg/dl Magnesium (1.7-2.4) mg/dl Total Bilirubin (0.2-1.0) mg/dl AST (13-39) U/L ALT (7-52) U/L Alkaline Phosphatase (34-104) U/L B-Natriuretic Peptide (0-100) pg/ml Total Protein (6.0-8.3) gm/dl Albumin (3.4-5.0) gm/dl Globulin (2.5-4.0) gm/dl Albumin/Globulin Ratio (0.9-2) Procalcitonin (0-0.5) ng/ml Nasal Screen MRSA (PCR) (Negative) Adenovirus (PCR) Not Detected (NotDetected) B. pertussis DNA (PCR) Not Detected (NotDetected) B.parapertussis DNA PCR Not Detected (NotDetected) C. pneumoniae DNA (PCR) Not Detected (NotDetected) Coronavirus OC43 (PCR) Not Detected (NotDetected) Coronavirus HKU1 (PCR) Not Detected (NotDetected) Coronavirus 229E (PCR) Not Detected (NotDetected) SARS-CoV-2 (PCR) Not Detected (Negative) Coronavirus NL63 (PCR) Not Detected (NotDetected) Human Metapneumovir PCR Not Detected (NotDetected) Influenza Type A (PCR) Not Detected (Neg) Influenza Type B (PCR) Not Detected (Neg) M. pneumoniae (PCR) Not Detected (NotDetected) Parainfluenza 1 (PCR) Not Detected (NotDetected) Parainfluenza 2 (PCR) Not Detected (NotDetected) Parainfluenza 3 (PCR) DETECTED A (NotDetected) Parainfluenza 4 (PCR) Not Detected (NotDetected) RSV (RT-PCR) (Neg) RSV (PCR) Not Detected (NotDetected) Entero/Rhino (PCR) Not Detected (NotDetected) 11/22/24 11/22/24 11/22/24 Range/Units 06:01 05:00 04:05 WBC (4.8-10.8) K/ul RBC (4.20-5.40) M/uL Hgb (12.0-16.0) g/dl Hct (37.0-47.0) % MCV (80.0-100.0) fL MCH (25.0-34.0) pg MCHC (32.0-36.0) g/dL RDW Std Deviation (36.4-46.3) fL RDW Coeff of [place] (11.5-14.5) % Plt Count (130-400) K/uL MPV (9.4-12.4) fL Immature Gran % (Auto) % Neut % (Auto) % Lymph % (Auto) % [place] % (Auto) % Eos % (Auto) % Baso % (Auto) % Neut # (Auto) (1.40-6.50) K/uL Lymph # (Auto) (1.20-3.40) K/uL [place] # (Auto) (0.11-0.59) K/uL Eos # (Auto) (0.00-0.50) K/uL Baso # (Auto) (0.00-0.20) K/uL Immature Gran # (Auto) (0.01-0.20) K/uL PT (9.0-12.0) Seconds INR (0.9-1.1) APTT (21-31) Seconds PTT Ratio VBG pH (7.36-7.41) VBG pCO2 (38-50) mmHg VBG pO2 mmHg VBG HCO3 mmol/L VBG O2 Saturation % VBG Base Excess mEq/L Sodium (136-145) mmol/L Potassium (3.5-5.1) mmol/L Chloride (98-107) mmol/L Carbon Dioxide (21-32) mmol/L Anion Gap (3-11) BUN (6-23) mg/dl Creatinine (0.6-1.2) mg/dl Est Cr Clr Drug Dosing ml/min eGFR BUN/Creatinine Ratio (10-20) Glucose (70-99(Fasting)) mg/dl POC Glucose 99 (70-99) mg/dl Calcium (8.6-10.3) mg/dl Magnesium (1.7-2.4) mg/dl Total Bilirubin (0.2-1.0) mg/dl AST (13-39) U/L ALT (7-52) U/L Alkaline Phosphatase (34-104) U/L B-Natriuretic Peptide 199 H (0-100) pg/ml Total Protein (6.0-8.3) gm/dl Albumin (3.4-5.0) gm/dl Globulin (2.5-4.0) gm/dl Albumin/Globulin Ratio (0.9-2) Procalcitonin 0.87 H (0-0.5) ng/ml Nasal Screen MRSA (PCR) Negative (Negative) Adenovirus (PCR) (NotDetected) B. pertussis DNA (PCR) (NotDetected) B.parapertussis DNA PCR (NotDetected) C. pneumoniae DNA (PCR) (NotDetected) Coronavirus OC43 (PCR) (NotDetected) Coronavirus HKU1 (PCR) (NotDetected) Coronavirus 229E (PCR) (NotDetected) SARS-CoV-2 (PCR) NEGATIVE (Negative) Coronavirus NL63 (PCR) (NotDetected) Human Metapneumovir PCR (NotDetected) Influenza Type A (PCR) Negative (Neg) Influenza Type B (PCR) Negative (Neg) M. pneumoniae (PCR) (NotDetected) Parainfluenza 1 (PCR) (NotDetected) Parainfluenza 2 (PCR) (NotDetected) Parainfluenza 3 (PCR) (NotDetected) Parainfluenza 4 (PCR) (NotDetected) RSV (RT-PCR) Negative (Neg) RSV (PCR) (NotDetected) Entero/Rhino (PCR) (NotDetected) 11/22/24 11/22/24 Range/Units 04:04 03:55 WBC 6.28 (4.8-10.8) K/ul RBC 3.37 L (4.20-5.40) M/uL Hgb 10.8 L (12.0-16.0) g/dl Hct 36.2 L (37.0-47.0) % MCV 107.4 H (80.0-100.0) fL MCH 32.0 (25.0-34.0) pg MCHC 29.8 L (32.0-36.0) g/dL RDW Std Deviation 63.1 H (36.4-46.3) fL RDW Coeff of [place] 15.9 H (11.5-14.5) % Plt Count 279 (130-400) K/uL MPV 9.3 L (9.4-12.4) fL Immature Gran % (Auto) 0.3 % Neut % (Auto) 79.5 % Lymph % (Auto) 5.6 % [place] % (Auto) 14.3 % Eos % (Auto) 0.0 % Baso % (Auto) 0.3 % Neut # (Auto) 4.99 (1.40-6.50) K/uL Lymph # (Auto) 0.35 L (1.20-3.40) K/uL [place] # (Auto) 0.90 H (0.11-0.59) K/uL Eos # (Auto) 0.00 (0.00-0.50) K/uL Baso # (Auto) 0.02 (0.00-0.20) K/uL Immature Gran # (Auto) 0.02 (0.01-0.20) K/uL PT 10.6 (9.0-12.0) Seconds INR 1.0 (0.9-1.1) APTT 25 (21-31) Seconds PTT Ratio 0.9 VBG pH 7.31 L (7.36-7.41) VBG pCO2 78 H (38-50) mmHg VBG pO2 23 mmHg VBG HCO3 39 mmol/L VBG O2 Saturation < 60.0 % VBG Base Excess 9.8 mEq/L Sodium 145 (136-145) mmol/L Potassium 4.6 (3.5-5.1) mmol/L Chloride 101 (98-107) mmol/L Carbon Dioxide 37 H (21-32) mmol/L Anion Gap 7 (3-11) BUN 29 H (6-23) mg/dl Creatinine 0.71 (0.6-1.2) mg/dl Est Cr Clr Drug Dosing 53.0 ml/min eGFR 89.17 BUN/Creatinine Ratio 40.8 H (10-20) Glucose 87 (70-99(Fasting)) mg/dl POC Glucose 86 (70-99) mg/dl Calcium 10.0 (8.6-10.3) mg/dl Magnesium 2.0 (1.7-2.4) mg/dl Total Bilirubin 0.4 (0.2-1.0) mg/dl AST 24 (13-39) U/L ALT 24 (7-52) U/L Alkaline Phosphatase 124 H (34-104) U/L B-Natriuretic Peptide (0-100) pg/ml Total Protein 6.6 (6.0-8.3) gm/dl Albumin 4.0 (3.4-5.0) gm/dl Globulin 2.6 (2.5-4.0) gm/dl Albumin/Globulin Ratio 1.5 (0.9-2) Procalcitonin (0-0.5) ng/ml Nasal Screen MRSA (PCR) (Negative) Adenovirus (PCR) (NotDetected) B. pertussis DNA (PCR) (NotDetected) B.parapertussis DNA PCR (NotDetected) C. pneumoniae DNA (PCR) (NotDetected) Coronavirus OC43 (PCR) (NotDetected) Coronavirus HKU1 (PCR) (NotDetected) Coronavirus 229E (PCR) (NotDetected) SARS-CoV-2 (PCR) (Negative) Coronavirus NL63 (PCR) (NotDetected) Human Metapneumovir PCR (NotDetected) Influenza Type A (PCR) (Neg) Influenza Type B (PCR) (Neg) M. pneumoniae (PCR) (NotDetected) Parainfluenza 1 (PCR) (NotDetected) Parainfluenza 2 (PCR) (NotDetected) Parainfluenza 3 (PCR) (NotDetected) Parainfluenza 4 (PCR) (NotDetected) RSV (RT-PCR) (Neg) RSV (PCR) (NotDetected) Entero/Rhino (PCR) (NotDetected) Diagnostic Findings Chest X-Ray 11/22/24 03:45 EXAM: XR chest 1V portable CLINICAL HISTORY: Pneumonia. TECHNIQUE: An X-ray image of the chest is obtained in AP projection. COMPARISON: prior CT 12/30/2023 FINDINGS: Pulmonary Parenchyma: Accentuated lung markings. No evidence of consolidation, collapse, or focal opacities. No pulmonary nodules are identified. No evidence of pleural effusion or pleural thickening. Heart and Mediastinum: Average cardiac size. No mediastinal widening or masses. No hilar or mediastinal lymphadenopathy. Retro cadiac well defined opacity with air fluid level ( hiatus hernia ). Bony Thorax: Bony thorax appears intact without fractures or deformities. Soft Tissues: Soft tissues overlying the chest wall are unremarkable. IMPRESSION: 1. No gross airspace opacities. 2. Accentuated lung markings, likely secondary to emphysematus changes. 3. Retro cadiac well defined opacity with air fluid level ( hiatus hernia). 4. No significant interval changes. Electronically signed by Amari Miramontes 11-22-2024 05:08 AM PG Care Time/CCT Total # of Minutes Spent Total Time Spent with Patient: Total time spent is greater than 50% in coordination of care (as documented) at patient's floor/unit and/or counseling patient: I spent 120 minutes overall addressing this case: 15 min in medical data review/discussion with referring provider(s) and/or preparation for the visit 15 min in direct interaction with the patient/exam 60 min in Advance Care Planning/Goals of Care discussions as detailed above in note (must be >16min) 15 min in subsequent review and synthesis of assessment and plan 15 min communicating with other providers regarding the patient's case: Advanced Care Planning 80789 Advanced Care Planning 30 Min 88914 Advanced Care Planning Additional 30 [place] [address] IN/OBS CONSULT LVL 4,60M (25 - SIGNIFICANT, SEPARATELY IDENTIFIABLE ) Patient Type New Medical Decision Making High Complexity Diagnoses Left hip pain M25.552 Dyspnea and respiratory abnormalities R06.00; R06.89 Advanced care planning/counseling discussion Z71.89 Palliative care by specialist Z51.5 Additional Codes Advanced Care Planning - 09419 Advanced Care Planning 30 Min: 69152 Advanced Care Planning 30 Min ([id number]) Advanced Care Planning - 90649 Advanced Care Planning Additional 30 Min: 73612 Advanced Care Planning Additional 30 Min ([id number]) Comment [id number], [id number]
--- NOTE | 2024-11-22 17:25 | Communication Note ---
Date of Service: November 22, 2024 Patient seen and examined on 11/22/2024 at 11 AM Efrain at bedside H&P from 11/22/2024 reviewed and appreciated Labs reviewed Radiology reviewed Pulmonology note, recommendations and AVAPS settings reviewed DIRECTOR OF PARTNERSHIPS note reviewed Continue Unasyn plus azithromycin Continue IV Solu-Medrol Palliative care consulted: Await palliative care consult and recommendations Patient confirms she is DNR/DNI Care plan discussed with patient, and nursing staff and updated at bedside
[2024-11-22] MEDS: SODIUM CHLOR 7% 4 ML NEB NEB SCH (19:01)
[2024-11-22] MEDS: BUDESONIDE 0.5 MG/2 ML VIAL (PULMICORT) NEB SCH (19:01)
[2024-11-22] MEDS: FORMOTEROL 20 MCG/2 ML VIAL NEB SCH (19:01)
[2024-11-22] MEDS: ACETAMINOPHEN IV SCH (20:28)
--- NOTE | 2024-11-23 05:33 | Electrocardiogram Report ---
Test Reason : Blood Pressure : */* mmHG Vent. Rate : 112 BPM Atrial Rate : 112 BPM P-R Int : 144 ms QRS Dur : 80 ms QT Int : 334 ms P-R-T Axes : 83 55 67 degrees QTcB Int : 455 ms Sinus tachycardia Low voltage QRS Cannot rule out Anterior infarct , age undetermined Cannot rule out Inferior infarct Abnormal ECG When compared with ECG of 03-Oct-2014 01:12, Questionable change in QRS axis Confirmed by Jaswant Gibson ([id number]) on 11/23/2024 5:33:32 AM Referred By: Jean-Paul Narayan Confirmed By: Jaswant Gibson
[2024-11-23 06:40] LABS: HCO3 VBG 35 mmol/L; Oxygen Saturation VBG 97.4 %; PCO2 VBG 57 mmHg (38-50); PO2 VBG 83 mmHg
[2024-11-23 06:49] LABS: Hematocrit (blood only) 32.3 % (37.0-47.0); Hemoglobin 9.7 g/dl (12.0-16.0); Immature Granulocytes # (auto) 0.03 K/uL (0.01-0.20); Immature Granulocytes % (auto) 0.6 %; Lymphocytes % (auto) 6.1 %; Mean Corpuscular Volume 106.6 fL (80.0-100.0); Mean Platelet Volume 8.9 fL (9.4-12.4); Monocytes # (auto) 0.35 K/uL (0.11-0.59); Monocytes % (auto) 7.2 %; Neutrophils % (auto) 86.1 %; Platelet Count 211 K/uL (130-400); RDW Coefficient of Variation 15.4 % (11.5-14.5); RDW Standard Deviation 61.1 fL (36.4-46.3); Red Blood Count 3.03 M/uL (4.20-5.40); White Blood Count 4.88 K/ul (4.8-10.8)
[2024-11-23 07:04] LABS: BUN Creatinine Ratio 54.8 (10-20); Calcium 9.2 mg/dl (8.6-10.3); Creatinine Clr Calc Pharmacy 88.1 ml/min; Potassium 4.5 mmol/L (3.5-5.1)
[2024-11-23 07:28] LABS: Folate (Folic Acid),Ser orPlas > 22.30 ng/ml (>5.38)
[2024-11-23 07:29] LABS: Vitamin B12 1166 pg/ml (180-914)
[2024-11-23 07:54] LABS: Estimated Average Glucose 114 mg/dl; Hemoglobin A1C 5.6 % (4.5-5.6)
--- NOTE | 2024-11-23 08:29 | Pulmonology Progress Note ---
Date of Service November 23, 2024 Assessment & Plan (1) COPD exacerbation: (2) Respiratory distress: (3) Acute on chronic respiratory failure with hypoxia and hypercapnia: (4) Severe protein-calorie malnutrition: (5) Advanced care planning/counseling discussion: Plan IMPRESSION: 74-year-old female with a history of very severe COPD, exertional hypoxemia, multiple pulmonary nodules who is admitted in the setting of acute on chronic respiratory failure with hypoxia and hypercapnia with concerns for ongoing aspiration. RECOMMENDATIONS: 1. COPD exacerbation -likely precipitated by viral URI. Continue therapy with azithromycin, nebulized budesonide, nebulized Perforomist, parenteral steroids, and Incruse. Could consider chronic azithromycin therapy in the outpatient setting versus trials of methylxanthine's depending on clinical response. 2. Hypoxemic and hypercarbic respiratory failure: Due to chronic respiratory failure consequent to COPD, patient now requires a noninvasive home ventilator. Bilevel therapy with and without a rate would be ineffective as patient requires a volume targeted mode. Ventilation is required to decrease work of breathing and improve pulmonary status. Interruption of ventilator support would lead to decline of health status. NIMV settings should be AVAPS-AE; Breath rate: auto; Inspiratory time:auto; Sigh: off; PS min: 5; PS max 20; EPAP min: 5; EPAP max: 20; AVAPS rate: 20 During sleep and as needed. 3. Respiratory Distress -in the setting of COPD exacerbation. Agree with pulmonary toileting as above. AVAPS to offload work of breathing. 4. Possible aspiration -per speech therapy 5. Pulmonary nodules - Multiple pulmonary nodules previously appreciated, however new suspicious nodule noted in the RIGHT lower lobe measuring 7 mm and spiculated in appearance. Most recent follow-up CT shows stability of this area and likely more telesales representative of scarring in the lung which makes more sense. Unfortunately the severity of her underlying lung conditions is likely prohibitive for invasive procedures or definitive therapy 6. Advance care planning -DNR/DNI. Reviewed palliative care notes. Patient family considering options moving forward Thank you for allowing us to participate in the care of this pleasant patient. Pulmonary medicine will continue to follow along. Admission and Anticipated Discharge Date Admission Date: November 22, 2024 Subjective Patient seen and examined. EMR reviewed. The patient thinks that she is making some progress. She continues to have some shortness of breath. She tolerated the positive airway pressure overnight. She does state that it makes her somewhat uncomfortable but she is willing to continue with therapy for now. Review of Systems 2 Review of Systems: All systems reviewed & are unremarkable except as noted in Subjective Physical Exam 2 Constitutional: WD/WN, vitals as above Neck: trachea midline, no thyromegaly Respiratory: Breath sounds are diminished to bilateral bases. No wheezing. Bibasilar crackles are auscultated. Cardiovascular: RRR, no murmur, no edema Gastrointestinal (Abdomen): normal bowel sounds, soft, nontender, no hepatosplenomegaly Musculoskeletal: Extremities: extremities normal to inspection Skin: no rashes, warm and dry Neurologic: Nonfocal exam Lymphatic: no cervical lymphadenopathy Results & Data Results & Data Vital Signs (Past 12 Hours) Vital Signs Temp Pulse Pulse Resp BP Pulse Ox O2 Del Method 11/23/24 07:38 37.1 C 94 H 18 174/88 H 93 CPAP 11/23/24 07:33 94 H 18 93 CPAP 11/23/24 03:12 36.8 C 70 18 145/78 H 98 BiPAP 11/23/24 02:07 74 20 98 11/22/24 23:25 36.4 C 72 18 137/74 95 BiPAP 11/22/24 22:30 81 16 98 11/22/24 22:00 73 11/22/24 20:39 102 H 161/81 H O2 Flow Rate 11/23/24 07:38 11/23/24 07:33 3 11/23/24 03:12 11/23/24 02:07 3 11/22/24 23:25 11/22/24 22:30 3 11/22/24 22:00 11/22/24 20:39 Laboratory Results 11/23/24 06:31 11/23/24 06:31 Diagnostic Findings No new imaging PG Care Time/CCT Total # of Minutes Spent Total Time Spent with Patient: Total time spent is greater than 50% in coordination of care (as documented) at patient's floor/unit and/or counseling patient: Coding Level of Care Code 78032 SUB INP/OBS CARE 2/35MIN Diagnoses COPD exacerbation J44.1 Respiratory distress R06.03 Acute on chronic respiratory failure with hypoxia and hypercapnia J96.21; J96.22 Severe protein-calorie malnutrition E43 Advanced care planning/counseling discussion Z71.89
[2024-11-23] MEDS: carvediloL 12.5 MG TAB PO SCH (09:05)
--- NOTE | 2024-11-23 10:38 | Hospitalist Progress Note ---
Date of Service November 23, 2024 Assessment & Plan (1) COPD exacerbation: (2) Acute respiratory failure with hypoxia and hypercapnia: (3) Aspiration pneumonia: (4) History of total hip replacement: (5) Severe protein-calorie malnutrition: (6) T2DM (type 2 diabetes mellitus): (7) Macrocytic anemia: Plan 74-year-old female with past medical history of severe COPD on 2 L of oxygen at baseline, hypertension, recent total left hip replacement, type 2 diabetes mellitus presents as a transfer from [facility] with progressive respiratory failure/shortness of breath for 1 to 2 days prior to admission. #Acute on chronic hypoxic and hypercapnic respiratory failure #Acute exacerbation of COPD #Parainfluenza viral pneumonia #Multifocal pneumonia noted on CT scan, suspicious for aspiration #Pulmonary nodules Outpatient fiber designer is Evan Jansen PA-C Pulmonology saw the patient during hospital stay, they recommended getting palliative care involved for discussions of hospice care Patient met with palliative care and got overwhelmed with discussions CTA chest from 11/21/2024 shows no evidence of pulmonary embolus, moderate pulmonary emphysema and multifocal consolidation involving both lungs possibly related to aspiration Continue azithromycin (day 2/5) per pulmonology recommendations Continue Solu-Medrol 40 mg IV twice daily Patient has been on IV Unasyn for 2 days, switch to oral Augmentin She was seen by speech therapy recommended easy to chew diet with thin liquids. Continue nebulizers and inhalers Continue BiPAP nightly Pulmonology has recommended AVAPS for discharge NIMV settings should be AVAPS-AE; Breath rate: auto; Inspiratory time:auto; Sigh: off; PS min: 5; PS max 20; EPAP min: 5; EPAP max: 20; AVAPS rate: 20 During sleep and as needed. Echo from 11/22/2024 shows normal left ventricular size and hyperdynamic systolic function with EF of greater than 70%, no regional wall motion abnormalities. No significant valvular abnormalities. New suspicious nodule noted in the right lower lobe measuring 7 mm and spiculated in appearance. As per pulmonology, most recent follow-up CT shows stability of this area and likely more mechanical service representative scarring in the lung. Unfortunately the severity of her underlying lung condition is likely prohibitive for invasive procedures or definitive therapy. #Severe protein calorie malnutrition Nutrition following the patient and patient on nutritional supplements B12 is 1116 Thiamine level sent: Results pending Liberalize to regular diet #Essential hypertension Continue lisinopril and carvedilol Monitor vital signs #Type 2 diabetes mellitus A1c is 5.6 Liberalize diet given severe malnutrition Pharmacy is following patient for glycemic control since she is on IV steroids CODE STATUS: DNR/DNI DVT prophylaxis: Lovenox 30 mg subcutaneous daily Discharge planning Home with home health services and new AVAPS based on clinical improvement, likely in the next 48 to 72 hours Care plan discussed with patient, nursing staff and Efrain updated at bedside Admission and Anticipated Discharge Date Admission Date: November 22, 2024 Subjective Patient seen and examined Efrain at bedside Patient used BiPAP overnight, reports feeling better today but not completely at her baseline She denies any chest pain, nausea, vomiting or abdominal pain She does not like hospital food She met with palliative care and was overwhelmed with discussions of hospice She is agreeable to AVAPS machine at home Physical Exam Physical Exam: General: Patient able to talk in full sentences, mild respiratory distress noted Psych: Awake and alert, oriented to place and person HEENT: Anicteric sclera, moist oral mucosa CVS: Regular rate and rhythm Lungs: Bilateral air entry, expiratory wheezing noted Abdomen: Soft, nontender, no rebound, no guarding Ext: 1+ pitting edema noted, no calf tenderness Neuro: No focal motor deficits noted Results & Data Results & Data Vital Signs (Past 12 Hours) Vital Signs Temp Pulse Pulse Resp BP Pulse Ox O2 Del Method 11/23/24 10:29 Nasal Cannula 11/23/24 10:27 90 11/23/24 07:38 37.1 C 94 H 18 174/88 H 93 CPAP 11/23/24 07:33 94 H 18 93 CPAP 11/23/24 03:12 36.8 C 70 18 145/78 H 98 BiPAP 11/23/24 02:07 74 20 98 11/22/24 23:25 36.4 C 72 18 137/74 95 BiPAP O2 Flow Rate 11/23/24 10:29 3 11/23/24 10:27 11/23/24 07:38 11/23/24 07:33 3 11/23/24 03:12 11/23/24 02:07 3 11/22/24 23:25 Laboratory Results Laboratory Results - last 24 hr 11/22/24 11/22/24 11/22/24 10:30 11:21 16:01 WBC RBC Hgb Hct MCV MCH MCHC RDW Std Deviation RDW Coeff of [place] Plt Count MPV Immature Gran % (Auto) Neut % (Auto) Lymph % (Auto) [place] % (Auto) Eos % (Auto) Baso % (Auto) Neut # (Auto) Lymph # (Auto) [place] # (Auto) Eos # (Auto) Baso # (Auto) Immature Gran # (Auto) VBG pH VBG pCO2 VBG pO2 VBG HCO3 VBG O2 Saturation VBG Base Excess Sodium Potassium Chloride Carbon Dioxide Anion Gap BUN Creatinine Est Cr Clr Drug Dosing eGFR BUN/Creatinine Ratio Glucose POC Glucose 121 H 202 H Estimat Average Glucose Hemoglobin A1c Calcium Whole Bld Vitamin B1 Vitamin B12 Folate Adenovirus (PCR) Not Detected B. pertussis DNA (PCR) Not Detected B.parapertussis DNA PCR Not Detected C. pneumoniae DNA (PCR) Not Detected Coronavirus OC43 (PCR) Not Detected Coronavirus HKU1 (PCR) Not Detected Coronavirus 229E (PCR) Not Detected SARS-CoV-2 (PCR) Not Detected Coronavirus NL63 (PCR) Not Detected Human Metapneumovir PCR Not Detected Influenza Type A (PCR) Not Detected Influenza Type B (PCR) Not Detected M. pneumoniae (PCR) Not Detected Parainfluenza 1 (PCR) Not Detected Parainfluenza 2 (PCR) Not Detected Parainfluenza 3 (PCR) DETECTED A Parainfluenza 4 (PCR) Not Detected RSV (PCR) Not Detected Entero/Rhino (PCR) Not Detected 11/22/24 11/23/24 11/23/24 21:00 06:31 07:24 WBC 4.88 RBC 3.03 L Hgb 9.7 L Hct 32.3 L MCV 106.6 H MCH 32.0 MCHC 30.0 L RDW Std Deviation 61.1 H RDW Coeff of [place] 15.4 H Plt Count 211 MPV 8.9 L Immature Gran % (Auto) 0.6 Neut % (Auto) 86.1 Lymph % (Auto) 6.1 [place] % (Auto) 7.2 Eos % (Auto) 0.0 Baso % (Auto) 0.0 Neut # (Auto) 4.20 Lymph # (Auto) 0.30 L [place] # (Auto) 0.35 Eos # (Auto) 0.00 Baso # (Auto) 0.00 Immature Gran # (Auto) 0.03 VBG pH 7.40 VBG pCO2 57 H VBG pO2 83 VBG HCO3 35 VBG O2 Saturation 97.4 VBG Base Excess 9.0 Sodium 145 Potassium 4.5 Chloride 100 Carbon Dioxide 39 H Anion Gap 6 BUN 23 Creatinine 0.42 L Est Cr Clr Drug Dosing 88.1 eGFR 102.58 BUN/Creatinine Ratio 54.8 H Glucose 125 H POC Glucose 169 H 124 H Estimat Average Glucose 114 Hemoglobin A1c 5.6 Calcium 9.2 Whole Bld Vitamin B1 Pending Vitamin B12 1166 H Folate > 22.30 Adenovirus (PCR) B. pertussis DNA (PCR) B.parapertussis DNA PCR C. pneumoniae DNA (PCR) Coronavirus OC43 (PCR) Coronavirus HKU1 (PCR) Coronavirus 229E (PCR) SARS-CoV-2 (PCR) Coronavirus NL63 (PCR) Human Metapneumovir PCR Influenza Type A (PCR) Influenza Type B (PCR) M. pneumoniae (PCR) Parainfluenza 1 (PCR) Parainfluenza 2 (PCR) Parainfluenza 3 (PCR) Parainfluenza 4 (PCR) RSV (PCR) Entero/Rhino (PCR) Diagnostic Findings Chest X-Ray 11/22/24 03:45 EXAM: XR chest 1V portable CLINICAL HISTORY: Pneumonia. TECHNIQUE: An X-ray image of the chest is obtained in AP projection. COMPARISON: prior CT 12/30/2023 FINDINGS: Pulmonary Parenchyma: Accentuated lung markings. No evidence of consolidation, collapse, or focal opacities. No pulmonary nodules are identified. No evidence of pleural effusion or pleural thickening. Heart and Mediastinum: Average cardiac size. No mediastinal widening or masses. No hilar or mediastinal lymphadenopathy. Retro cadiac well defined opacity with air fluid level ( hiatus hernia ). Bony Thorax: Bony thorax appears intact without fractures or deformities. Soft Tissues: Soft tissues overlying the chest wall are unremarkable. IMPRESSION: 1. No gross airspace opacities. 2. Accentuated lung markings, likely secondary to emphysematus changes. 3. Retro cadiac well defined opacity with air fluid level ( hiatus hernia). 4. No significant interval changes. Electronically signed by Amari Miramontes 11-22-2024 05:08 AM PG Care Time/CCT Total # of Minutes Spent Total Time Spent with Patient: Total time spent is greater than 50% in coordination of care (as documented) at patient's floor/unit and/or counseling patient: Coding Level of Care Code 77363 SUB INP/OBS CARE 3/50MIN Diagnoses COPD exacerbation J44.1 Acute respiratory failure with hypoxia and hypercapnia J96.01; J96.02 Aspiration pneumonia J69.0 History of total hip replacement Z96.649 Severe protein-calorie malnutrition E43 T2DM (type 2 diabetes mellitus) E11.9 Macrocytic anemia D53.9
[2024-11-23] MEDS: AMOXICILLIN/CLAVULANATE 875 MG TAB PO ONE (17:54)
[2024-11-23] MEDS: methylPREDNISolone 30 MG in SYRINGE 0 ML IV SCH (21:12)
[2024-11-24 08:16] LABS: BUN Creatinine Ratio 53.8 (10-20); Calcium 9.4 mg/dl (8.6-10.3); Creatinine Clr Calc Pharmacy 92.7 ml/min; Magnesium 1.8 mg/dl (1.7-2.4); Potassium 4.7 mmol/L (3.5-5.1)
[2024-11-24] MEDS: AMOXICILLIN/CLAVULANATE 875 MG TAB PO SCH (09:09)
--- NOTE | 2024-11-24 11:20 | Hospitalist Progress Note ---
Date of Service November 24, 2024 Assessment & Plan (1) COPD exacerbation: (2) Acute respiratory failure with hypoxia and hypercapnia: (3) Aspiration pneumonia: (4) History of total hip replacement: (5) Severe protein-calorie malnutrition: (6) T2DM (type 2 diabetes mellitus): (7) Macrocytic anemia: Plan 74-year-old female with past medical history of severe COPD on 2 L of oxygen at baseline, hypertension, recent total left hip replacement, type 2 diabetes mellitus presents as a transfer from [facility] with progressive respiratory failure/shortness of breath for 1 to 2 days prior to admission. #Acute on chronic hypoxic and hypercapnic respiratory failure #Acute exacerbation of COPD #Parainfluenza viral pneumonia #Multifocal pneumonia noted on CT scan, suspicious for aspiration #Pulmonary nodules Outpatient onsite case manager is Evan Jansen PA-C Pulmonology saw the patient during hospital stay, they recommended getting palliative care involved for discussions of hospice care Patient met with palliative care and got overwhelmed with discussions CTA chest from 11/21/2024 shows no evidence of pulmonary embolus, moderate pulmonary emphysema and multifocal consolidation involving both lungs possibly related to aspiration Continue azithromycin (day 2/5) per pulmonology recommendations Reduce Solu-Medrol to 20 mg IV twice daily Patient has been on IV Unasyn for 2 days, switch to oral Augmentin (day 3) She was seen by speech therapy recommended easy to chew diet with thin liquids. Continue nebulizers and inhalers Continue BiPAP nightly Pulmonology has recommended AVAPS for discharge NIMV settings should be AVAPS-AE; Breath rate: auto; Inspiratory time:auto; Sigh: off; PS min: 5; PS max 20; EPAP min: 5; EPAP max: 20; AVAPS rate: 20 During sleep and as needed. Echo from 11/22/2024 shows normal left ventricular size and hyperdynamic systolic function with EF of greater than 70%, no regional wall motion abnormalities. No significant valvular abnormalities. New suspicious nodule noted in the right lower lobe measuring 7 mm and spiculated in appearance. As per pulmonology, most recent follow-up CT shows stability of this area and likely more medical sales representative scarring in the lung. Unfortunately the severity of her underlying lung condition is likely prohibitive for invasive procedures or definitive therapy. #Severe protein calorie malnutrition Nutrition following the patient and patient on nutritional supplements B12 is 1116 Thiamine level sent: Results pending Liberalize to regular diet #Essential hypertension Continue lisinopril and carvedilol Monitor vital signs #Type 2 diabetes mellitus A1c is 5.6 Liberalize diet given severe malnutrition Pharmacy is following patient for glycemic control since she is on IV steroids CODE STATUS: DNR/DNI DVT prophylaxis: Lovenox 30 mg subcutaneous daily Discharge planning Home with home health services with new AVAPS based on clinic al improvement and AVAPS being delivered, likely in the next 48 hours Care plan discussed with patient, nursing staff and Efrain updated at bedside Admission and Anticipated Discharge Date Admission Date: November 22, 2024 Subjective Patient seen and examined Efrian at bedside Feels slightly better today Denies any chest pain, nausea, vomiting or abdominal pain Appetite is slowly improving Physical Exam Physical Exam: General: Patient able to talk in full sentences Psych: Awake and alert, oriented to place and person HEENT: Anicteric sclera, moist oral mucosa CVS: Regular rate and rhythm Lungs: Bilateral air entry, no wheezing noted Abdomen: Soft, nontender, no rebound, no guarding Ext: 1+ pitting edema noted, no calf tenderness Neuro: No focal motor deficits noted Results & Data Results & Data Vital Signs (Past 12 Hours) Vital Signs Temp Pulse Pulse Resp BP Pulse Ox O2 Del Method 11/24/24 11:05 36.9 C 84 29 H 158/76 H 98 Nasal Cannula 11/24/24 10:48 95 H 17 95 Nasal Cannula 11/24/24 10:30 Nasal Cannula 11/24/24 08:30 36.7 C 103 H 18 172/78 H 90 Nasal Cannula 11/24/24 07:14 98 H 15 97 Nasal Cannula 11/24/24 03:32 71 17 95 11/24/24 03:31 36.7 C 74 19 178/79 H 97 BiPAP O2 Flow Rate 11/24/24 11:05 2 11/24/24 10:48 2 11/24/24 10:30 2 11/24/24 08:30 2 11/24/24 07:14 2 11/24/24 03:32 3 11/24/24 03:31 Laboratory Results Laboratory Results - last 24 hr 11/23/24 11/23/24 11/23/24 11:22 16:33 20:48 Sodium Potassium Chloride Carbon Dioxide Anion Gap BUN Creatinine Est Cr Clr Drug Dosing eGFR BUN/Creatinine Ratio Glucose POC Glucose 193 H 204 H 190 H Calcium Magnesium 11/24/24 11/24/24 11/24/24 07:06 07:18 11:10 Sodium 140 Potassium 4.7 Chloride 93 L Carbon Dioxide 44 H* Anion Gap 3 BUN 21 Creatinine 0.39 L Est Cr Clr Drug Dosing 92.7 eGFR 104.43 BUN/Creatinine Ratio 53.8 H Glucose 185 H POC Glucose 198 H 204 H Calcium 9.4 Magnesium 1.8 PG Care Time/CCT Total # of Minutes Spent Total Time Spent with Patient: Total time spent is greater than 50% in coordination of care (as documented) at patient's floor/unit and/or counseling patient: Coding Level of Care Code 40322 SUB INP/OBS CARE 2/35MIN Diagnoses COPD exacerbation J44.1 Acute respiratory failure with hypoxia and hypercapnia J96.01; J96.02 Aspiration pneumonia J69.0 History of total hip replacement Z96.649 Severe protein-calorie malnutrition E43 T2DM (type 2 diabetes mellitus) E11.9 Macrocytic anemia D53.9
--- NOTE | 2024-11-24 16:36 | Pulmonology Progress Note ---
Date of Service November 24, 2024 Assessment & Plan (1) COPD exacerbation: (2) Respiratory distress: (3) Acute on chronic respiratory failure with hypoxia and hypercapnia: (4) Severe protein-calorie malnutrition: (5) Advanced care planning/counseling discussion: Plan IMPRESSION: 74-year-old female with a history of very severe COPD, exertional hypoxemia, multiple pulmonary nodules who is admitted in the setting of acute on chronic respiratory failure with hypoxia and hypercapnia with concerns for ongoing aspiration. RECOMMENDATIONS: 1. COPD exacerbation -likely precipitated by viral URI. Continue therapy with azithromycin, nebulized budesonide, nebulized Perforomist, and Incruse. Okay to transition to oral steroids. Could consider chronic azithromycin therapy in the outpatient setting versus trials of methylxanthine's depending on clinical response. Agree with completing course of oral Augmentin. 7 days should be appropriate therapy 2. Hypoxemic and hypercarbic respiratory failure: Due to chronic respiratory failure consequent to COPD, patient now requires a noninvasive home ventilator. Bilevel therapy with and without a rate would be ineffective as patient requires a volume targeted mode. Ventilation is required to decrease work of breathing and improve pulmonary status. Interruption of ventilator support would lead to decline of health status. NIMV settings should be AVAPS-AE; Breath rate: auto; Inspiratory time:auto; Sigh: off; PS min: 5; PS max 20; EPAP min: 5; EPAP max: 20; AVAPS rate: 20 During sleep and as needed. 3. Respiratory Distress -resolved 4. Possible aspiration -reinforced importance of speech therapy recommendations 5. Pulmonary nodules - Multiple pulmonary nodules previously appreciated, however new suspicious nodule noted in the RIGHT lower lobe measuring 7 mm and spiculated in appearance. Most recent follow-up CT shows stability of this area and likely more used equipment sales representative of scarring in the lung which makes more sense. Unfortunately the severity of her underlying lung conditions is likely prohibitive for invasive procedures or definitive therapy 6. Advance care planning -DNR/DNI. Patient not interested in hospice but would qualify. She is declining physically. Okay to discharge home with AVAPS. Can follow-up in the outpatient pulmonary clinic if needed Admission and Anticipated Discharge Date Admission Date: November 22, 2024 Subjective Patient seen and examined. EMR reviewed. The patient reports that she is doing okay. She becomes winded when she eats and does cough more when swallowing. She does not endorse any overt aspiration events. She is producing a small amount of phlegm. She states she wants to go home with home health and is not interested in a palliative care approach as she is "not interested in giving up". Review of Systems 2 Review of Systems: All systems reviewed & are unremarkable except as noted in Subjective Physical Exam 2 Constitutional: WD/WN, vitals as above Neck: trachea midline, no thyromegaly Respiratory: + cough; no respiratory distress and no labored breathing A uscultation: + diminished lung sounds, + crackles and + wheezes Cardiovascular: RRR, no murmur, no edema Gastrointestinal (Abdomen): normal bowel sounds, soft, nontender, no hepatosplenomegaly Musculoskeletal: Extremities: extremities normal to inspection Skin: no rashes, warm and dry Lymphatic: no cervical lymphadenopathy Results & Data Results & Data Vital Signs (Past 12 Hours) Vital Signs Temp Pulse Pulse Resp BP Pulse Ox O2 Del Method 11/24/24 15:44 99 H 15 99 Nasal Cannula 11/24/24 15:24 36.6 C 93 H 18 173/89 H 94 Nasal Cannula 11/24/24 11:05 36.9 C 84 29 H 158/76 H 98 Nasal Cannula 11/24/24 10:48 95 H 17 95 Nasal Cannula 11/24/24 10:30 Nasal Cannula 11/24/24 08:30 79 11/24/24 08:30 36.7 C 103 H 18 172/78 H 90 Nasal Cannula 11/24/24 07:14 98 H 15 97 Nasal Cannula O2 Flow Rate 11/24/24 15:44 2 11/24/24 15:24 2 11/24/24 11:05 2 11/24/24 10:48 2 11/24/24 10:30 2 11/24/24 08:30 11/24/24 08:30 2 11/24/24 07:14 2 Laboratory Results 11/23/24 06:31 11/24/24 07:06 Diagnostic Findings No new imaging PG Care Time/CCT Total # of Minutes Spent Total Time Spent with Patient: Total time spent is greater than 50% in coordination of care (as documented) at patient's floor/unit and/or counseling patient: Coding Level of Care Code 42507 SUB INP/OBS CARE 2/35MIN Diagnoses COPD exacerbation J44.1 Respiratory distress R06.03 Acute on chronic respiratory failure with hypoxia and hypercapnia J96.21; J96.22 Severe protein-calorie malnutrition E43 Advanced care planning/counseling discussion Z71.89
[2024-11-24] MEDS: predniSONE 20 MG TAB PO SCH (16:58)
[2024-11-24] MEDS ORDERED: methylPREDNISolone 20 MG in SYRINGE 0 ML IV SCH (17:00)
--- NOTE | 2024-11-24 23:21 | Palliative Family Discussion ---
Date of Service November 24, 2024 Patient Directed Conference Time of Meetin330p Participants: July Suarez DNP Patient participation: no, per pt preference Patient Support System: daughter Caitlin Russell Other Healthcare Provider Participation: None Meeting Location: telephonic A telephonic ACP meeting was held for CURT RUSSELL. This meeting was necessary for determining the appropriate course of treatment. Topics of Discussion Topics of Discussion: 1. At pt and her 's request, a telephonic ACP meeting was held with dtr myah for 30min. 2. Clinical overview and summary of prior family meeting provided. Reviewed COPD progression, implications and where we are at at this junction with very adv disease. I summarized my discussion with pt/ as well as my reccs, advised Myah that ot was reluctant to consider hospice and states she didn't feel emotionally ready. 3. Myah notes pt and spouse are [place], generally do not wear hearing aides and often do not hear or comprehend everything. She agrees it is time to seriously think about hospice pipe since pt has goal / desire to remain at home. I reviewed hospice with Myah in detail. She expressed clear understanding and plans to revisit topic with parents tomorrow late afternoon when she visits. I advised I am happy to follow pt in clinic, can reassess 2-4 weeks after dc for hospice suitability if agreeable, Myah agreed and will review with parents. Other Content of Meetin. Opportunity given for participants to speak and ask questions. 2. Participants were assured of attention to patient comfort. 3. Reassurance provided. 4. Support was provided for informed, good-jero decisions. 5. Emotions expressed by family were acknowledged and addressed. 6. Follow-up Outpatient: yes few weeks after dc TS 30min ACP, telephonic ACP
--- NOTE | 2024-11-25 08:22 | Pulmonology Progress Note ---
Date of Service November 25, 2024 Assessment & Plan (1) COPD exacerbation: (2) Respiratory distress: (3) Acute on chronic respiratory failure with hypoxia and hypercapnia: (4) Severe protein-calorie malnutrition: (5) Advanced care planning/counseling discussion: Plan IMPRESSION: 74-year-old female with a history of very severe COPD, exertional hypoxemia, multiple pulmonary nodules who is admitted in the setting of acute on chronic respiratory failure with hypoxia and hypercapnia with concerns for ongoing aspiration. RECOMMENDATIONS: 1. COPD exacerbation -likely precipitated by viral URI. Continue therapy with azithromycin, nebulized budesonide, nebulized Perforomist, and Incruse. Complete 5-day course of oral steroids. Could consider chronic azithromycin therapy in the outpatient setting versus trials of methylxanthine's depending on clinical response. Agree with completing course of oral Augmentin. 7 days should be appropriate therapy 2. Hypoxemic and hypercarbic respiratory failure: Due to chronic respiratory failure consequent to COPD, patient now requires a noninvasive home ventilator. Bilevel therapy with and without a rate would be ineffective as patient requires a volume targeted mode. Ventilation is required to decrease work of breathing and improve pulmonary status. Interruption of ventilator support would lead to decline of health status. NIMV settings should be AVAPS-AE; Breath rate: auto; Inspiratory time:auto; Sigh: off; PS min: 5; PS max 20; EPAP min: 5; EPAP max: 20; AVAPS rate: 20 During sleep and as needed. 3. Respiratory Distress -resolved 4. Possible aspiration -reinforced importance of speech therapy recommendations 5. Pulmonary nodules - Multiple pulmonary nodules previously appreciated, however new suspicious nodule noted in the RIGHT lower lobe measuring 7 mm and spiculated in appearance. Most recent follow-up CT shows stability of this area and likely more front office representative of scarring in the lung which makes more sense. Unfortunately the severity of her underlying lung conditions is likely prohibitive for invasive procedures or definitive therapy. Can follow-up in the outpatient setting 6. Advance care planning -DNR/DNI. Patient not interested in hospice but would qualify. She is declining physically. Okay to discharge home with AVAPS. Can follow-up in the outpatient pulmonary clinic if needed. She appears to be at her pulmonary baseline. Feel free to contact us with questions or concerns but pulmonary will sign off at this point in time Admission and Anticipated Discharge Date Admission Date: November 22, 2024 Subjective Patient seen and examined. EMR reviewed. Patient feels that her breathing is approaching her baseline. She is concerned about her blood pressure and her sugar. She has no new respiratory concerns today and appears to be approaching her baseline Review of Systems 2 Review of Systems: All systems reviewed & are unremarkable except as noted in Subjective Physical Exam 2 Constitutional: WD/WN, vitals as above Neck: trachea midline, no thyromegaly Respiratory: + cough; no respiratory distress and no labored breathing A uscultation: + diminished lung sounds Cardiovascular: RRR, no murmur, no edema Gastrointestinal (Abdomen): normal bowel sounds, soft, nontender, no hepatosplenomegaly Musculoskeletal: Extremities: extremities normal to inspection Skin: no rashes, warm and dry Lymphatic: no cervical lymphadenopathy Results & Data Results & Data Vital Signs (Past 12 Hours) Vital Signs Temp Pulse Pulse Resp BP Pulse Ox O2 Del Method 11/25/24 07:47 37 C 96 H 16 196/98 H 95 Nasal Cannula 11/25/24 07:09 95 H 18 98 Nasal Cannula 11/25/24 06:09 93 H 16 192/92 H 94 Nasal Cannula 11/25/24 03:03 72 17 95 11/24/24 23:15 78 20 97 11/24/24 20:22 36.5 C 94 H 18 197/92 H 94 Nasal Cannula O2 Flow Rate 11/25/24 07:47 2 11/25/24 07:09 2 11/25/24 06:09 2 11/25/24 03:03 3 11/24/24 23:15 3 11/24/24 20:22 2 Laboratory Results 11/23/24 06:31 11/24/24 07:06 Diagnostic Findings No new imaging PG Care Time/CCT Total # of Minutes Spent Total Time Spent with Patient: Total time spent is greater than 50% in coordination of care (as documented) at patient's floor/unit and/or counseling patient: Coding Level of Care Code 57335 SUB INP/OBS CARE 2/35MIN Diagnoses COPD exacerbation J44.1 Respiratory distress R06.03 Acute on chronic respiratory failure with hypoxia and hypercapnia J96.21; J96.22 Severe protein-calorie malnutrition E43 Advanced care planning/counseling discussion Z71.89
--- NOTE | 2024-11-25 14:05 | Hospitalist Progress Note ---
Date of Service November 25, 2024 Assessment & Plan (1) COPD exacerbation: (2) Acute respiratory failure with hypoxia and hypercapnia: (3) Aspiration pneumonia: (4) History of total hip replacement: (5) Severe protein-calorie malnutrition: (6) T2DM (type 2 diabetes mellitus): (7) Macrocytic anemia: Plan 74-year-old female with past medical history of severe COPD on 2 L of oxygen at baseline, hypertension, recent total left hip replacement, type 2 diabetes mellitus presents as a transfer from [facility] with progressive respiratory failure/shortness of breath for 1 to 2 days prior to admission. #Acute on chronic hypoxic and hypercapnic respiratory failure #Acute exacerbation of COPD #Parainfluenza viral pneumonia #Multifocal pneumonia noted on CT scan, suspicious for aspiration #Pulmonary nodules Outpatient tour production supervisor is Evan Jansen PA-C Pulmonology saw the patient during hospital stay, they recommended getting palliative care involved for discussions of hospice care Patient met with palliative care and got overwhelmed with discussions CTA chest from 11/21/2024 shows no evidence of pulmonary embolus, moderate pulmonary emphysema and multifocal consolidation involving both lungs possibly related to aspiration Patient is finished 5 days of oral azithromycin per pulmonology recommendations Pulmonology as patient provide Solu-Medrol to prednisone 20 mg daily Patient has been on IV Unasyn for 2 days, switched to oral Augmentin (day 4 of Abx in total) She was seen by speech therapy recommended easy to chew diet with thin liquids. Continue nebulizers and inhalers Continue BiPAP nightly Pulmonology has recommended AVAPS for discharge NIMV settings should be AVAPS-AE; Breath rate: auto; Inspiratory time:auto; Sigh: off; PS min: 5; PS max 20; EPAP min: 5; EPAP max: 20; AVAPS rate: 20 During sleep and as needed. Echo from 11/22/2024 shows normal left ventricular size and hyperdynamic systolic function with EF of greater than 70%, no regional wall motion abnormalities. No significant valvular abnormalities. New suspicious nodule noted in the right lower lobe measuring 7 mm and spiculated in appearance. As per pulmonology, most recent follow-up CT shows stability of this area and likely more client service representative scarring in the lung. Unfortunately the severity of her underlying lung condition is likely prohibitive for invasive procedures or definitive therapy. Patient was seen by palliative care: She wants to go home with home health/home PT services and if she declines at home #Severe protein calorie malnutrition Nutrition following the patient and patient on nutritional supplements B12 is 1116 Thiamine level sent: Results pending #Essential hypertension Continue lisinopril and carvedilol Hide amlodipine 5 mg p.o. daily for better blood pressure control Monitor vital signs #Type 2 diabetes mellitus A1c is 5.6 Pharmacy is following patient for glycemic control since she is on IV steroids CODE STATUS: DNR/DNI DVT prophylaxis: Lovenox 30 mg subcutaneous daily Discharge planning Home with home health services tomorrow based on AVAPS being set up. Care plan discussed with patient, nursing staff, case management and Efrain updated on the phone Admission and Anticipated Discharge Date Admission Date: November 22, 2024 Subjective Patient sitting in a chair. Resting comfortably She is at her baseline oxygen requirements of 2 L She is awaiting AVAPS She reports feeling better today Denies any chest pain, shortness of breath, nausea, vomiting or abdominal pain Physical Exam Physical Exam: General: Patient able to talk in full sentences Psych: Awake and alert, oriented to place and person HEENT: Anicteric sclera, moist oral mucosa CVS: Regular rate and rhythm Lungs: Bilateral air entry, no wheezing noted Abdomen: Soft, nontender, no rebound, no guarding Ext: Trace edema, no calf tenderness Results & Data Results & Data Vital Signs (Past 12 Hours) Vital Signs Temp Pulse Pulse Resp BP Pulse Ox O2 Del Method 11/25/24 11:01 76 16 97 Nasal Cannula 11/25/24 09:30 Nasal Cannula 11/25/24 08:56 182/92 H 11/25/24 07:47 37 C 96 H 16 196/98 H 95 Nasal Cannula 11/25/24 07:09 95 H 18 98 Nasal Cannula 11/25/24 06:09 93 H 16 192/92 H 94 Nasal Cannula 11/25/24 03:03 72 17 95 O2 Flow Rate 11/25/24 11:01 2 11/25/24 09:30 2 11/25/24 08:56 11/25/24 07:47 2 11/25/24 07:09 2 11/25/24 06:09 2 11/25/24 03:03 3 PG Care Time/CCT Total # of Minutes Spent Total Time Spent with Patient: Total time spent is greater than 50% in coordination of care (as documented) at patient's floor/unit and/or counseling patient: Coding Level of Care Code 89074 SUB INP/OBS CARE 235MIN Diagnoses COPD exacerbation J44.1 Acute respiratory failure with hypoxia and hypercapnia J96.01; J96.02 Aspiration pneumonia J69.0 History of total hip replacement Z96.649 Severe protein-calorie malnutrition E43 T2DM (type 2 diabetes mellitus) E11.9 Macrocytic anemia D53.9
[2024-11-25] MEDS ORDERED: ALBUT/IPRATROP 3MG/0.5MG NEB 3 ML VIAL NEB PRN (14:09)
[2024-11-25] MEDS: ALBUT/IPRATROP 3MG/0.5MG NEB 3 ML VIAL NEB SCH (14:20)
--- NOTE | 2024-11-25 15:04 | Palliative Care Progress Note ---
Date of Service November 25, 2024 Assessment & Plan (1) Dyspnea and respiratory abnormalities: (2) Palliative care by specialist: (3) Advanced care planning/counseling discussion: Plan: 60min d/w pt and at bedside Distinction between OP pall med and home hospice discussed wanted to know if she can have reg PT and hospice but not hospice PT - advise PT through HH vs PT with hospice are 2 different things and cannot be done simultaneously. and dtr were leaning to hospice but pt states her goal is to get home and have reg PT, see how much better she can get. if she declines, she is agreeable to hospice. Admission and Anticipated Discharge Date Admission Date: November 22, 2024 Subjective Sarah is doing better this AM breathing easier but not back to baseline has not been OOB appetite ok BMs ok no n/v/d/c Review of Systems Review of Systems: All systems reviewed & are unremarkable except as noted in Subjective Physical Exam Constitutional: + acute distress, + ill appearing, + fra il appearing and + malnourished Eyes: PERRL, conjunctivae normal, anicteric sclerae ENMT: Mouth: + dry oral mucous membranes and + poor dentition Neck: trachea midline, no thyromegaly Respiratory: + labored breathing, + uses accessory mu scles, + cough, + prolonged expiratory phase, + pursed lip breathing and symmetric chest movement; + not able to speak in complete sentence Auscultation: + diminished lung sounds and + wheezes Cardiovascular: Rate/Rhythm: + tachycardic Gastrointestinal (Abdomen): Inspection/Auscultation: abdomen normal to inspection and normal bowel sounds; abdomen not distended Musculoskeletal: gen weakness Skin: + turgor decreased and + dry skin Neurologic: AAOx3 Psychiatric: Orientation: alert and oriented x 3 Apperance: + disheveled Eye Contact: + fair eye contact Motor Behavior: no abnormal motor movements Speech: + pressured speech Affect: + anxious affect Mood: + anxious mood Estimated Intelligence: consistent with education level Insight: good insight Judgment: good judgement Results & Data Vital Signs (Past 12 Hours) Vital Signs Temp Pulse Pulse Resp BP Pulse Ox O2 Del Method 11/25/24 14:20 73 18 99 Nasal Cannula 11/25/24 11:01 76 16 97 Nasal Cannula 11/25/24 09:30 Nasal Cannula 11/25/24 08:56 182/92 H 11/25/24 07:47 37 C 96 H 16 196/98 H 95 Nasal Cannula 11/25/24 07:09 95 H 18 98 Nasal Cannula 11/25/24 06:09 93 H 16 192/92 H 94 Nasal Cannula 11/25/24 03:03 72 17 95 O2 Flow Rate 11/25/24 14:20 2 11/25/24 11:01 2 11/25/24 09:30 2 11/25/24 08:56 11/25/24 07:47 2 11/25/24 07:09 2 11/25/24 06:09 2 11/25/24 03:03 3 PG Care Time/CCT Total # of Minutes Spent Total Time Spent with Patient: Total time spent is greater than 50% in coordination of care (as documented) at patient's floor/unit and/or counseling patient: I spent 105 minutes overall addressing this case: 10 min in medical data review/discussion with referring provider(s) and/or preparation for the visit 15 min in direct interaction with the patient/exam 60 min in Advance Care Planning/Goals of Care discussions as detailed above in note (must be >16min) 10 min in subsequent review and synthesis of assessment and plan 10 min communicating with other providers regarding the patient's case: primary team, nursing, patient care nursing assistant Advanced Care Planning 78425 Advanced Care Planning 30 Min 22735 Advanced Care Planning Additional 30 Min [place] [address] SUB INP/OBS CARE 3/50MIN Patient Type Established History Comprehensive Exam Comprehensive Medical Decision Making High Complexity Diagnoses Dyspnea and respiratory abnormalities R06.00; R06.89 Palliative care by specialist Z51.5 Advanced care planning/counseling discussion Z71.89 Additional Codes Advanced Care Planning - 94827 Advanced Care Planning 30 Min: [id number] Advanced Care Planning 30 Min ([id number]) Advanced Care Planning - 55947 Advanced Care Planning Additional 30 Min: 41852 Advanced Care Planning Additional 30 Min ([id number]) Comment [id number] for ACP
[2024-11-25] MEDS: amLODIPine BESYLATE 5 MG TAB PO ONE (15:20)
[2024-11-25] MEDS ORDERED: PHARMACY GLYCEMIC MGMT CONSULT PRN (16:58)
[2024-11-25] MEDS: LANTUS PER UNIT CHARGE SC ONE (17:43)
[2024-11-26] MEDS: INSULIN ASPART PER UNIT CHARGE SC ONE (03:42)
[2024-11-26 08:31] LABS: BUN Creatinine Ratio 52.8 (10-20); Blood Urea Nitrogen 19 mg/dl (6-23); Calcium 9.6 mg/dl (8.6-10.3); Carbon Dioxide > 45 mmol/L (21-32); Chloride 89 mmol/L (98-107); Creatinine Clr Calc Pharmacy 100.4 ml/min; Glucose 104 mg/dl (70-99(Fasting)); Magnesium 1.9 mg/dl (1.7-2.4); Potassium 4.1 mmol/L (3.5-5.1); Sodium 138 mmol/L (136-145)
[2024-11-26] MEDS: MAGNESIUM OXIDE 400 MG TAB PO ONE (08:58)
[2024-11-26] MEDS: amLODIPine BESYLATE 5 MG TAB PO SCH (08:59)
--- NOTE | 2024-11-26 09:18 | Hospitalist Progress Note ---
Date of Service November 26, 2024 Assessment & Plan (1) COPD exacerbation: (2) Acute respiratory failure with hypoxia and hypercapnia: (3) Aspiration pneumonia: (4) History of total hip replacement: (5) Severe protein-calorie malnutrition: (6) T2DM (type 2 diabetes mellitus): (7) Macrocytic anemia: Plan 74-year-old female with past medical history of severe COPD on 2 L of oxygen at baseline, hypertension, recent total left hip replacement, type 2 diabetes mellitus presents as a transfer from [facility] with progressive respiratory failure/shortness of breath for 1 to 2 days prior to admission. #Acute on chronic hypoxic and hypercapnic respiratory failure #Acute exacerbation of COPD #Parainfluenza viral pneumonia #Multifocal pneumonia noted on CT scan, suspicious for aspiration #Pulmonary nodules Outpatient abstract checker is Evan Jansen PA-C Pulmonology saw the patient during hospital stay, they recommended getting palliative care involved for discussions of hospice care Patient met with palliative care and got overwhelmed with discussions CTA chest from 11/21/2024 shows no evidence of pulmonary embolus, moderate pulmonary emphysema and multifocal consolidation involving both lungs possibly related to aspiration Patient has finished 5 days of oral azithromycin per pulmonology recommendations Pulmonology as patient provide Solu-Medrol to prednisone 20 mg daily Patient has been on IV Unasyn for 2 days, switched to oral Augmentin (day 12/21 of Abx in total) She was seen by speech therapy recommended easy to chew diet with thin liquids. Continue nebulizers and inhalers Continue BiPAP nightly Pulmonology has recommended AVAPS for discharge NIMV settings should be AVAPS-AE; Breath rate: auto; Inspiratory time:auto; Sigh: off; PS min: 5; PS max 20; EPAP min: 5; EPAP max: 20; AVAPS rate: 20 During sleep and as needed. Echo from 11/22/2024 shows normal left ventricular size and hyperdynamic systolic function with EF of greater than 70%, no regional wall motion abnormalities. No significant valvular abnormalities. New suspicious nodule noted in the right lower lobe measuring 7 mm and spiculated in appearance. As per pulmonology, most recent follow-up CT shows stability of this area and likely more tax representative scarring in the lung. Unfortunately the severity of her underlying lung condition is likely prohibitive for invasive procedures or definitive therapy. Patient was seen by palliative care: She wants to go home with home health/home PT services and if she declines at home, then she will switch to hospice services #Severe protein calorie malnutrition Nutrition following the patient and patient on nutritional supplements B12 is 1116 Thiamine level sent: Results pending #Essential hypertension Continue lisinopril and carvedilol Continue amlodipine 5 mg p.o. daily for better blood pressure control Monitor vital signs #Type 2 diabetes mellitus A1c is 5.6 Pharmacy is following patient for glycemic control #Anxiety and depression Continue citalopram 20 mg p.o. daily Patient does not want to try benzodiazepines Hydroxyzine 10 mg p.o. 3 times daily as needed for anxiety: Discussed with patient CODE STATUS: DNR/DNI DVT prophylaxis: Lovenox 30 mg subcutaneous daily Discharge planning Home with home health services pending AVAPS set up: Patient is medically stable for discharge Care plan discussed with patient, nursing staff, case management and Efrain updated Admission and Anticipated Discharge Date Admission Date: November 22, 2024 Subjective Patient seen and examined She is sitting in a chair She does acknowledge being anxious She does not like benzodiazepines: She has tried Ativan and Xanax in the past has reacted to them but cannot recall type of reaction She is agreeable to trying low-dose of hydroxyzine for anxiety She denies any chest pain, shortness of breath is at baseline Physical Exam Physical Exam: General: Patient able to talk in full sentences Psych: Awake and alert, oriented to place and person HEENT: Anicteric sclera, moist oral mucosa CVS: Regular rate and rhythm Lungs: Bilateral air entry, no wheezing noted Abdomen: Soft, nontender, no rebound, no guarding Ext: Trace edema, no calf tenderness Results & Data Results & Data Vital Signs (Past 12 Hours) Vital Signs Temp Pulse Pulse Pulse Resp BP Pulse Ox 11/26/24 08:58 134/76 11/26/24 08:05 37.2 C 90 16 180/78 H 98 11/26/24 07:48 86 16 98 11/26/24 03:47 80 18 95 11/25/24 23:13 80 24 95 11/25/24 21:43 11/25/24 21:43 Pulse Ox O2 Del Method O2 Del Method O2 Flow Rate O2 Flow Rate 11/26/24 08:58 11/26/24 08:05 Nasal Cannula 2 11/26/24 07:48 Nasal Cannula 2 11/26/24 03:47 3 11/25/24 23:13 3 11/25/24 21:43 Nasal Cannula, BiPAP 2 11/25/24 21:43 97 Nasal Cannula 2 Laboratory Results Laboratory Results - last 24 hr 11/25/24 11/25/24 11/25/24 11:45 16:44 16:45 Sodium Potassium Chloride Carbon Dioxide Anion Gap BUN Creatinine Est Cr Clr Drug Dosing eGFR BUN/Creatinine Ratio Glucose POC Glucose 233 H 376 H* 337 H* Calcium Magnesium 11/25/24 11/25/24 11/26/24 20:14 20:15 03:39 Sodium Potassium Chloride Carbon Dioxide Anion Gap BUN Creatinine Est Cr Clr Drug Dosing eGFR BUN/Creatinine Ratio Glucose POC Glucose 308 H* 291 H 106 H Calcium Magnesium 11/26/24 11/26/24 06:36 07:53 Sodium 138 Potassium 4.1 Chloride 89 L Carbon Dioxide > 45 H* Anion Gap TNP BUN 19 Creatinine 0.36 L Est Cr Clr Drug Dosing 100.4 eGFR 106.46 BUN/Creatinine Ratio 52.8 H Glucose 104 H POC Glucose 109 H Calcium 9.6 Magnesium 1.9 PG Care Time/CCT Total # of Minutes Spent Total Time Spent with Patient: Total time spent is greater than 50% in coordination of care (as documented) at patient's floor/unit and/or counseling patient: Coding Level of Care Code 72412 SUB INP/OBS CARE 2/35MIN Diagnoses COPD exacerbation J44.1 Acute respiratory failure with hypoxia and hypercapnia J96.01; J96.02 Aspiration pneumonia J69.0 History of total hip replacement Z96.649 Severe protein-calorie malnutrition E43 T2DM (type 2 diabetes mellitus) E11.9 Macrocytic anemia D53.9
--- NOTE | 2024-11-26 10:38 | Pharmacy Report ---
Pharmacy Glycemic Short Note 2 - Date of Service November 26, 2024 - Glycemic Short BSG Results (Last 24 hours): 11/25/24 11/25/24 11/25/24 11:45 16:44 16:45 Glucose POC Glucose 233 H 376 H* 337 H* 11/25/24 11/25/24 11/26/24 20:14 20:15 03:39 Glucose POC Glucose 308 H* 291 H 106 H 11/26/24 11/26/24 06:36 07:53 Glucose 104 H POC Glucose 109 H OUTPATIENT ANTIDIABETIC REGIMEN: * Lantus 10 units SQ daily * Empagliflozin 10 mg PO daily A1c = 5.6% 11/23/24 ASSESSMENT: * Lay is admitted with acute on chronic respiratory failure, COPD exacerbati on. * Pharmacy consulted for glycemic management in the setting of steroid induced hyperglycemia. * IV steroids have been transitioned to prednisone 20 mg PO daily * Fasting BSG of 109 mg/dL this AM is at goal. Patient received home dose of Lantus 10 units last evening. Will empirically decrease to avoid hypoglycemia. * Tighten Novolog parameters for better post prandial control. PLAN FOR INPATIENT GLYCEMIC CONTROL: * Hold outpatient oral diabetes medications * Basal insulin * Lantus 8 units SQ daily * Bolus insulin * NovoLog per scale ACHS or Q6hrs while NPO * Goal Range: Low 110 mg/dL - High 140 mg/dL * Correction Factor: 30 mg/dL/unit * Nutritional / Prandial insulin per carb ratio of 1 unit per 8 grams CHO consumed
[2024-11-26] MEDS: LANTUS PER UNIT CHARGE SC SCH (13:39)
[2024-11-26] MEDS: MAGNESIUM OXIDE 400 MG TAB PO SCH (21:39)
[2024-11-27] MEDS: hydrOXYzine HCl 10 MG TAB PO PRN (07:57)
--- NOTE | 2024-11-27 11:33 | Hospitalist Progress Note ---
Date of Service November 27, 2024 Assessment & Plan (1) COPD exacerbation: (2) Acute respiratory failure with hypoxia and hypercapnia: (3) Aspiration pneumonia: (4) History of total hip replacement: (5) Severe protein-calorie malnutrition: (6) T2DM (type 2 diabetes mellitus): (7) Macrocytic anemia: Plan 74-year-old female with past medical history of severe COPD on 2 L of oxygen at baseline, hypertension, recent total left hip replacement, type 2 diabetes mellitus presents as a transfer from [facility] with progressive respiratory failure/shortness of breath for 1 to 2 days prior to admission. #Acute on chronic hypoxic and hypercapnic respiratory failure #Acute exacerbation of COPD #Parainfluenza viral pneumonia #Multifocal pneumonia noted on CT scan, suspicious for aspiration #Pulmonary nodules Outpatient sanitary plumber is Evan Jansen PA-C Pulmonology saw the patient during hospital stay, they recommended getting palliative care involved for discussions of hospice care Patient met with palliative care and got overwhelmed with discussions CTA chest from 11/21/2024 shows no evidence of pulmonary embolus, moderate pulmonary emphysema and multifocal consolidation involving both lungs possibly related to aspiration Patient has finished 5 days of oral azithromycin per pulmonology recommendations Pulmonology as patient provide Solu-Medrol to prednisone 20 mg daily Patient has been on IV Unasyn for 2 days, switched to oral Augmentin (day 12/21 of Abx in total) She was seen by speech therapy recommended easy to chew diet with thin liquids. Continue nebulizers and inhalers Continue BiPAP nightly Pulmonology has recommended AVAPS for discharge NIMV settings should be AVAPS-AE; Breath rate: auto; Inspiratory time:auto; Sigh: off; PS min: 5; PS max 20; EPAP min: 5; EPAP max: 20; AVAPS rate: 20 During sleep and as needed. Echo from 11/22/2024 shows normal left ventricular size and hyperdynamic systolic function with EF of greater than 70%, no regional wall motion abnormalities. No significant valvular abnormalities. New suspicious nodule noted in the right lower lobe measuring 7 mm and spiculated in appearance. As per pulmonology, most recent follow-up CT shows stability of this area and likely more client care representative scarring in the lung. Unfortunately the severity of her underlying lung condition is likely prohibitive for invasive procedures or definitive therapy. Patient was seen by palliative care: She wants to go home with home health/home PT services and if she declines at home, then she will switch to hospice services #Severe protein calorie malnutrition Nutrition following the patient and patient on nutritional supplements B12 is 1116 Thiamine level sent 11/23/24: Results pending #Essential hypertension Continue lisinopril and carvedilol Continue amlodipine 5 mg p.o. daily Monitor vital signs #Type 2 diabetes mellitus A1c is 5.6 Pharmacy is following patient for glycemic control #Anxiety and depression Continue citalopram 20 mg p.o. daily Patient does not want to try benzodiazepines Hydroxyzine 10 mg p.o. 3 times daily as needed for anxiety CODE STATUS: DNR/DNI DVT prophylaxis: Lovenox 30 mg subcutaneous daily Discharge planning Home with home health services pending AVAPS set up: Patient is medically stable for discharge Care plan discussed with patient, nursing staff, case management and Efrain updated Admission and Anticipated Discharge Date Admission Date: November 22, 2024 Subjective Patient seen and examined at bedside Patient states anxiety is much better after trying hydroxyzine this morning She wants to continue with low-dose hydroxyzine She denies any chest pain Shortness of breath has improved and she is on baseline oxygen requirements Physical Exam Physical Exam: General: Patient able to talk in full sentences Psych: Awake and alert, oriented to place and person HEENT: Anicteric sclera, moist oral mucosa CVS: Regular rate and rhythm Lungs: Bilateral air entry, no wheezing noted Abdomen: Soft, nontender, no rebound, no guarding Ext: no edema, no calf tenderness Results & Data Results & Data Vital Signs (Past 12 Hours) Vital Signs Temp Pulse Pulse Resp BP Pulse Ox O2 Del Method 11/27/24 09:40 Nasal Cannula 11/27/24 08:11 36.5 C 90 16 154/84 H 94 Nasal Cannula 11/27/24 08:11 109 H 22 92 Nasal Cannula 11/27/24 03:28 70 18 96 O2 Flow Rate 11/27/24 09:40 2 11/27/24 08:11 2 11/27/24 08:11 2 11/27/24 03:28 3 Laboratory Results Laboratory Results - last 24 hr 11/26/24 11/26/24 11/26/24 16:42 20:45 20:46 POC Glucose 279 H 325 H* 320 H* 11/27/24 11/27/24 07:47 11:27 POC Glucose 113 H 144 H PG Care Time/CCT Total # of Minutes Spent Total Time Spent with Patient: Total time spent is greater than 50% in coordination of care (as documented) at patient's floor/unit and/or counseling patient: Coding Level of Care Code 09061 SUB INP/OBS CARE 09/10MIN Diagnoses COPD exacerbation J44.1 Acute respiratory failure with hypoxia and hypercapnia J96.01; J96.02 Aspiration pneumonia J69.0 History of total hip replacement Z96.649 Severe protein-calorie malnutrition E43 T2DM (type 2 diabetes mellitus) E11.9 Macrocytic anemia D53.9
[2024-11-27] MEDS: CARBOHYDRATES FOR HYPOGLYCEMIA PO PRN (16:45)
[2024-11-28] MEDS: INSULIN ASPART PER UNIT CHARGE SC SCH ×2 (08:36→12:32)
--- NOTE | 2024-11-28 10:03 | Pharmacy Report ---
Pharmacy Glycemic Short Note 2 - Date of Service November 28, 2024 - Glycemic Short BSG Results (Last 24 hours): 11/27/24 11/27/24 11/27/24 11:27 16:38 16:39 POC Glucose 144 H 53 L* 58 L* 11/27/24 11/27/24 11/28/24 16:57 20:28 07:15 POC Glucose 72 245 H 152 H OUTPATIENT ANTIDIABETIC REGIMEN: * Lantus 10 units SQ daily * Empagliflozin 10 mg PO daily A1c = 5.6% 11/23/24 ASSESSMENT: 11/28 * Patient's blood sugars pam throughout the day on 11/26, so CR was tightened, unfortunately this is too tight for lunchtime and resulted in hypoglycemia yesterday prior to dinner. * Will give patient tighter CR at breakfast only to prevent further hypoglycemia, and to cover effects of prednisone. * Last dose of prednisone scheduled for tomorrow, will need to loosen CR starting 11/30. 11/26 * Lay is admitted with acute on chronic respiratory failure, COPD exacerbation. * Pharmacy consulted for glycemic management in the setting of steroid induced hyperglycemia. * IV steroids have been transitioned to prednisone 20 mg PO daily * Fasting BSG of 109 mg/dL this AM is at goal. Patient received home dose of Lantus 10 units last evening. Will empirically decrease to avoid hypoglycemia. * Tighten Novolog parameters for better post prandial control. PLAN FOR INPATIENT GLYCEMIC CONTROL: * Hold outpatient oral diabetes medications * Basal insulin * Lantus 8 units SQ daily * Bolus insulin * NovoLog per scale ACHS or Q6hrs while NPO * Goal Range: Low 110 mg/dL - High 140 mg/dL * Correction Factor: 30 mg/dL/unit * Nutritional / Prandial insulin per carb ratio of 1 unit per 8 grams CHO consumed at all times, except 1 unit per 5 grams CHO consumed at breakfast
--- NOTE | 2024-11-28 12:07 | Hospitalist Progress Note ---
Date of Service November 28, 2024 Assessment & Plan (1) COPD exacerbation: (2) Acute respiratory failure with hypoxia and hypercapnia: (3) Aspiration pneumonia: (4) History of total hip replacement: (5) Severe protein-calorie malnutrition: (6) T2DM (type 2 diabetes mellitus): (7) Macrocytic anemia: Plan 74-year-old female with past medical history of severe COPD on 2 L of oxygen at baseline, hypertension, recent total left hip replacement, type 2 diabetes mellitus presents as a transfer from [facility] with progressive respiratory failure/shortness of breath for 1 to 2 days prior to admission. #Acute on chronic hypoxic and hypercapnic respiratory failure #Acute exacerbation of COPD #Parainfluenza viral pneumonia #Multifocal pneumonia noted on CT scan, suspicious for aspiration #Pulmonary nodules Outpatient payroll coordinator is Evan Jansen PA-C Pulmonology saw the patient during hospital stay, they recommended getting palliative care involved for discussions of hospice care Patient met with palliative care and got overwhelmed with discussions CTA chest from 11/21/2024 shows no evidence of pulmonary embolus, moderate pulmonary emphysema and multifocal consolidation involving both lungs possibly related to aspiration Patient has finished 5 days of oral azithromycin per pulmonology recommendations Pulmonology as patient provide Solu-Medrol to prednisone 20 mg daily Patient has been on IV Unasyn for 2 days, switched to oral Augmentin (day 6/ of Abx in total) She was seen by speech therapy recommended easy to chew diet with thin liquids. Continue nebulizers and inhalers Continue BiPAP nightly Pulmonology has recommended AVAPS for discharge NIMV settings should be AVAPS-AE; Breath rate: auto; Inspiratory time:auto; Sigh: off; PS min: 5; PS max 20; EPAP min: 5; EPAP max: 20; AVAPS rate: 20 During sleep and as needed. Echo from 11/22/2024 shows normal left ventricular size and hyperdynamic systolic function with EF of greater than 70%, no regional wall motion abnormalities. No significant valvular abnormalities. New suspicious nodule noted in the right lower lobe measuring 7 mm and spiculated in appearance. As per pulmonology, most recent follow-up CT shows stability of this area and likely more underwriting sales representative scarring in the lung. Unfortunately the severity of her underlying lung condition is likely prohibitive for invasive procedures or definitive therapy. Patient was seen by palliative care: She wants to go home with home health/home PT services and if she declines at home, then she will switch to hospice services #Severe protein calorie malnutrition Nutrition following the patient and patient on nutritional supplements B12 is 1116 Thiamine level sent 11/23/24: Results pending #Essential hypertension Continue lisinopril and carvedilol Continue amlodipine 5 mg p.o. daily Monitor vital signs #Type 2 diabetes mellitus A1c is 5.6 Pharmacy is following patient for glycemic control #Anxiety and depression Continue citalopram 20 mg p.o. daily Patient does not want to try benzodiazepines Hydroxyzine 10 mg p.o. 3 times daily as needed for anxiety CODE STATUS: DNR/DNI DVT prophylaxis: Lovenox 30 mg subcutaneous daily Discharge planning Home with home health services pending AVAPS set up: Patient is medically stable for discharge Care plan discussed with patient, nursing staff, case management and Efrain updated Admission and Anticipated Discharge Date Admission Date: November 22, 2024 Subjective Patient seen and examined Efrain at bedside Denies any new complaints Appetite is improved She had some low sugars yesterday, blood sugars have improved today Physical Exam Physical Exam: General: Patient able to talk in full sentences Psych: Awake and alert, oriented to place and person HEENT: Anicteric sclera, moist oral mucosa CVS: Regular rate and rhythm Lungs: Bilateral air entry, no wheezing noted Abdomen: Soft, nontender, no rebound, no guarding Ext: no edema, no calf tenderness Results & Data Results & Data Vital Signs (Past 12 Hours) Vital Signs Temp Pulse Pulse Resp BP Pulse Ox O2 Del Method 11/28/24 07:35 Nasal Cannula 11/28/24 07:27 83 18 96 Nasal Cannula 11/28/24 07:10 36.9 C 82 18 121/75 93 Nasal Cannula 11/28/24 02:10 77 16 92 O2 Flow Rate 11/28/24 07:35 2 11/28/24 07:27 2 11/28/24 07:10 2 11/28/24 02:10 3 Laboratory Results Laboratory Results - last 24 hr 11/27/24 11/27/24 11/27/24 16:38 16:39 16:57 POC Glucose 53 L* 58 L* 72 11/27/24 11/28/24 11/28/24 20:28 07:15 11:26 POC Glucose 245 H 152 H 179 H PG Care Time/CCT Total # of Minutes Spent Total Time Spent with Patient: Total time spent is greater than 50% in coordination of care (as documented) at patient's floor/unit and/or counseling patient: Coding Level of Care Code 57911 SUB INP/OBS CARE 09/10MIN Diagnoses COPD exacerbation J44.1 Acute respiratory failure with hypoxia and hypercapnia J96.01; J96.02 Aspiration pneumonia J69.0 History of total hip replacement Z96.649 Severe protein-calorie malnutrition E43 T2DM (type 2 diabetes mellitus) E11.9 Macrocytic anemia D53.9
[2024-11-29 07:13] LABS: Hematocrit (blood only) 32.7 % (37.0-47.0); Hemoglobin 10.4 g/dl (12.0-16.0); Mean Corpuscular Hemoglobin 31.6 pg (25.0-34.0); Mean Corpuscular Hgb Conc 31.8 g/dL (32.0-36.0); Mean Corpuscular Volume 99.4 fL (80.0-100.0); Mean Platelet Volume 10.1 fL (9.4-12.4); Platelet Count 231 K/uL (130-400); RDW Coefficient of Variation 14.3 % (11.5-14.5); RDW Standard Deviation 52.3 fL (36.4-46.3); Red Blood Count 3.29 M/uL (4.20-5.40); White Blood Count 8.38 K/ul (4.8-10.8)
[2024-11-29 07:20] VITALS: BP 173/83; TEMP 97.2
[2024-11-29 07:43] LABS: Alanine Aminotransferase 10 U/L (7-52); Albumin Globulin Ratio 1.1 (0.9-2); Albumin Level 3.1 gm/dl (3.4-5.0); Alkaline Phosphatase 80 U/L (34-104); Aspartate Aminotransferase 11 U/L (13-39); BUN Creatinine Ratio 56.6 (10-20); Bilirubin,Total 0.4 mg/dl (0.2-1.0); Blood Urea Nitrogen 30 mg/dl (6-23); Calcium 9.5 mg/dl (8.6-10.3); Carbon Dioxide > 45 mmol/L (21-32); Chloride 90 mmol/L (98-107); Creatinine Clr Calc Pharmacy 68.2 ml/min; Globulin 2.7 gm/dl (2.5-4.0); Glucose 125 mg/dl (70-99(Fasting)); Potassium 4.4 mmol/L (3.5-5.1); Sodium 137 mmol/L (136-145); Total Protein 5.8 gm/dl (6.0-8.3)
--- NOTE | 2024-11-29 10:14 | Pharmacy Report ---
Pharmacy Glycemic Short Note 2 - Date of Service November 29, 2024 - Glycemic Short BSG Results (Last 24 hours): 11/28/24 11/28/24 11/28/24 11:26 16:43 20:44 Glucose POC Glucose 179 H 213 H 248 H 11/29/24 11/29/24 06:15 07:25 Glucose 125 H POC Glucose 221 H OUTPATIENT ANTIDIABETIC REGIMEN: * Lantus 10 units SQ daily * Empagliflozin 10 mg PO daily A1c = 5.6% 11/23/24 ASSESSMENT: 11/29 * Patient's blood sugars pam throughout the day again yesterday, will tighten CR. * Last dose of prednisone scheduled for today, will need to loosen CR starting 11/30. 11/28 * Patient's blood sugars pam throughout the day on 11/26, so CR was tightened, unfortunately this is too tight for lunchtime and resulted in hypoglycemia yesterday prior to dinner. * Will give patient tighter CR at breakfast only to prevent further hypoglycemia, and to cover effects of prednisone. * Last dose of prednisone scheduled for tomorrow, will need to loosen CR starting 11/30. 11/26 * Lay is admitted with acute on chronic respiratory failure, COPD exacerbation. * Pharmacy consulted for glycemic management in the setting of steroid induced hyperglycemia. * IV steroids have been transitioned to prednisone 20 mg PO daily * Fasting BSG of 109 mg/dL this AM is at goal. Patient received home dose of Lantus 10 units last evening. Will empirically decrease to avoid hypoglycemia. * Tighten Novolog parameters for better post prandial control. PLAN FOR INPATIENT GLYCEMIC CONTROL: * Hold outpatient oral diabetes medications * Basal insulin * Lantus 8 units SQ daily * Bolus insulin * NovoLog per scale ACHS or Q6hrs while NPO * Goal Range: Low 110 mg/dL - High 140 mg/dL * Correction Factor: 30 mg/dL/unit * Nutritional / Prandial insulin per carb ratio of 1 unit per 7 grams CHO consumed at all times, except 1 unit per 5 grams CHO consumed at breakfast
--- NOTE | 2024-11-29 10:23 | Discharge Summary ---
Discharge Summary Date of Service November 29, 2024 Principal Dx & Hospital Course #1 = Principal Diagnosis (1) COPD exacerbation: (2) Acute respiratory failure with hypoxia and hypercapnia: (3) Aspiration pneumonia: (4) History of total hip replacement: (5) Severe protein-calorie malnutrition: (6) T2DM (type 2 diabetes mellitus): (7) Macrocytic anemia: Plan 74-year-old female with past medical history of severe COPD on 2 L of oxygen at baseline, hypertension, recent total left hip replacement, type 2 diabetes mellitus presents as a transfer from [facility] with progressive respiratory failure/shortness of breath for 1 to 2 days prior to admission. #Acute on chronic hypoxic and hypercapnic respiratory failure #Acute exacerbation of COPD #Parainfluenza viral pneumonia #Multifocal pneumonia noted on CT scan, suspicious for aspiration #Pulmonary nodules Outpatient geriatrics physician is Evan Jansen PA-C Pulmonology saw the patient during hospital stay, they recommended getting pall iative care involved for discussions of hospice care Patient met with palliative care and got overwhelmed with discussions CTA chest from 11/21/2024 shows no evidence of pulmonary embolus, moderate pulm onary emphysema and multifocal consolidation involving both lungs possibly related to aspiration Patient has finished 5 days of oral azithromycin per pulmonology recommendations Pulmonology as patient provide Solu-Medrol to prednisone 20 mg daily Patient has been on IV Unasyn for 2 days, switched to oral Augmentin (day 6/7 of Abx in total) She was seen by speech therapy recommended easy to chew diet with thin liquids. Continue nebulizers and inhalers Continue BiPAP nightly Pulmonology has recommended AVAPS for discharge NIMV settings should be AVAPS-AE; Breath rate: auto; Inspiratory time:auto; Sigh: off; PS min: 5; PS max 20; EPAP min: 5; EPAP max: 20; AVAPS rate: 20 During sleep and as needed. Echo from 11/22/2024 shows normal left ventricular size and hyperdynamic systolic function with EF of greater than 70%, no regional wall motion abnormalities. No significant valvular abnormalities. New suspicious nodule noted in the right lower lobe measuring 7 mm and spiculated in appearance. As per pulmonology, most recent follow-up CT shows stability of this area and likely more compliance representative scarring in the lung. Unfortunately the severity of her underlying lung condition is likely prohibitive for invasive procedures or definitive therapy. Patient was seen by palliative care: She wants to go home with home health/home PT services and if she declines at home, then she will switch to hospice services #Severe protein calorie malnutrition Nutrition following the patient and patient on nutritional supplements B12 is 1116 Thiamine level sent 11/23/24: Results pending #Essential hypertension Continue lisinopril and carvedilol Continue amlodipine 5 mg p.o. daily Monitor vital signs #Type 2 diabetes mellitus A1c is 5.6 Pharmacy is following patient for glycemic control #Anxiety and depression Continue citalopram 20 mg p.o. daily Patient does not want to try benzodiazepines Hydroxyzine 10 mg p.o. 3 times daily as needed for anxiety CODE STATUS: DNR/DNI DVT prophylaxis: Lovenox 30 mg subcutaneous daily Discharge planning Home with home health services pending AVAPS set up: Patient is medically stable for discharge Care plan discussed with patient, nursing staff, case management and Efrain updated Admission HPI Per Admitting Provider Cherelle Bergeron is a 74 year old female who presents as a transfer from [facility] for acute hypoxic hypercapnic respiratory failure with COPD exacerbation and concern for aspiration pneumonia. She reports two days of generalized illness with feeling sluggish and generalized weakness. While doing physical therapy yesterday she thought she was doing much worse and therefore advised her to go to the ER. She has severe COPD on baseline 2LPM O2 and feels short of breath every now and again but with hindsight this was also worse the last 2 days. She has a productive cough which is clear. Some coughing after drinking just for the last day. No chest pain, abdominal pain, nausea, vomiting, change in bowels. She notes increased swelling of her left leg following hip operation 3 weeks ago. In the ER she had duonebs which helped her breathing significantly. CT was acosta rning for aspiration pneumonia and she was given ceftriaxone + metronidazole + azithromycin. Given her poor respiratory status with respiratory acidosis secondary to hypercapnia transfer from [facility] was advised and given her geriatrics physician are Sue Kwan she requested transfer here. On transfer call it was advised to start IV steroids and she was given Solu-Medrol 60mg IV. She was placed on BiPAP 10/5 with improvement CO2 retention initially VBG pH 7.25, PvCO2 100. Followed by ABG pH 7.30 -> 7.32 -> 7.34, pCO2 82 -> 75 - > 62 She reports taking all her usual medications. Discharge Exam GENERAL APPEARANCE NAD, activity normal for age, well developed/ well nourished, no cyanosis, pallor, or diaphoresis. EYES lids/conjunctiva normal. EARS/NOSE/THROAT Mucous membranes moist, nares normal, lips/teeth normal uvula midline without oral pharyngeal erythema, exudate or swelling TMs normal bilaterally. No lymphangitis/lymphedema. HEAD/NECK normocephalic atraumatic, no facial trauma, neck is supple. RESPIRATORY respiratory effort normal, speaks in full sentences, no tripod position, no accessory muscle use. Lungs clear to auscultation without rhonchi, wheezes, rales CARDIAC Regular rate and rhythm, no edema. ABDOMINAL Soft, ND/NT. No evidence of fluid wave. No pulsatile masses on exam, rebound tenderness, Jimenes sign or pain over Mcburney's point. MUSCLES/EXTREMITIES No abnormal range of motion, no swelling. SKIN Warm, pink and dry. No rashes, dermatoses, petechiae or lesions. NEUROLOGICAL Speech is clear and appropriate. Normal level of consciousness. Gait and coordination are normal. 5/5 strength in all extremities. PSYCH Normal mood and affect. Judgement/competence is appropriate Discharge Plan Discharge Items Patient Disposition: Home - Self-Care Reason For Visit: ASPIRATION PNEUMONIA, COPD EXAC Discharge Diagnosis: PNA, COPD exacerbation Activity: Resume your previous activity Non-emergency contact: Primary Care Provider Call non-emergency contact if: you have any medication questions Follow-up/Referrals: Julio Cesar Farmer [Primary Care Provider] - Diet: Regular Addtl Attending Provider Instructions: Follow up the [facility] in 1 week Pending Studies at Discharge: No Stand-Alone Forms: My Happy Hour Pal, Smoking Cessation Medications and DC Order Prescriptions: New prednisone 20 mg Tablet 20 mg PO DAILY Qty: 30 0RF amlodipine [Norvasc] 5 mg Tablet 5 mg PO QAM Qty: 30 0RF Continued ipratropium-albuterol 0.5 mg-3 mg(2.5 mg base)/3 mL solution for nebulization 3 ml inhalation Q4H PRN (Reason: COPD) Qty: 360 5RF albuterol sulfate 90 mcg/actuation HFA aerosol inhaler 2 puff inhalation QID PRN (Reason: shortness of breath or wheezing) Qty: 8.5 2RF Ohtuvayre 3 mg/2.5 mL suspension for nebulization 3 mg inhalation BID Qty: 150 11RF simvastatin 20 mg tablet 20 mg PO HS (DME) nebulizers Misc See Rx Instructions miscellaneous .MEDSUPPLY Qty: 1 0RF Rx Instructions: Broken beyond repair. Please replace. Lifetime need. (DME) nebulizer accessories Kit See Rx Instructions .MEDSUPPLY Qty: 1 0RF Rx Instructions: Use with nebulizer solution QID or as directed. Lifetime need. Anoro Ellipta 62.5-25 mcg/actuation blister with device 1 inh inhalation DAILY Qty: 3 3RF (DME) Portable Oxygen Misc See Rx Instructions .Route Qty: 1 0RF Rx Instructions: POC with O2@2lpm via NC -all the time-Please test pt on POC to maintain O2 Sats above 90% (DME) Oxygen Home Liters Per Minute See Rx Instructions .ROUTE .MEDSUPPLY Qty: 1 0RF Rx Instructions: 2 LPM with exertion and nightly. (DME) Oxygen Home Liters Per Minute See Rx Instructions .MEDSUPPLY Qty: 1 0RF Rx Instructions: conserving device for portable oxygen citalopram 20 mg tablet 20 mg PO DAILY carvedilol 12.5 mg tablet 12.5 mg PO BID garlic 1,000 mg capsule 1,000 mg PO DAILY lisinopril 40 mg tablet 20 mg PO DAILY Jardiance 10 mg tablet 10 mg PO DAILY Combivent Respimat 20-100 mcg/actuation mist 1 puff inhalation Q6H PRN (Reason: shortness of breath or wheezing) Qty: 3 4RF enoxaparin 30 mg/0.3 mL syringe 30 mg subcut BID calcium carbonate-vitamin D3 [Oyster Shell Calcium-Vit D3] 500 mg-5 mcg (200 unit) tablet 1 tab PO DAILY tramadol 50 mg Tablet 50 mg PO Q4 PRN (Reason: Pain) ascorbic acid (vitamin C) [Vitamin C] 500 mg Tablet 500 mg PO BID insulin glargine U-300 conc [Toujeo Max U-300 SoloStar] 300 unit/mL (3 mL) insulin pen 10 unit SUBCUT DAILY Discharge Orders: Discharge Order (Routine); Ordered 11/29/24 Ordered By: David Soriano Admission Data Admit Date/Time: 11/22/24 03:37 Attending Provider: David Soriano Admit Provider: Jean-Paul Narayan Primary Care Provider: Julio Cesar Farmer Other Providers: July Suarez; Mansoor Domingo Hospital Stay Data Consultations 11/22/24 04:20 Consult Pulmonology Routine 11/22/24 11:32 Consult Palliative Care Routine Pending Results Patient Have Any Pending Studies at Discharge: No Discharge Instructions Given to Patient (Per Discharging Provider) Follow up [facility] in 1 week Total Time Total Time Spent Total Time Spent (In Minutes): 50 Coding Level of Care Code 77541 INP/OBS DISCH >30 MIN Diagnoses COPD exacerbation J44.1 Acute respiratory failure with hypoxia and hypercapnia J96.01; J96.02 Aspiration pneumonia J69.0 History of total hip replacement Z96.649 Severe protein-calorie malnutrition E43 T2DM (type 2 diabetes mellitus) E11.9 Macrocytic anemia D53.9
[2024-11-29 13:33] VITALS: PULSE 80; RESP 16; O2SAT 95
== END 2024-11-29 15:21 | disposition home or self-care (01) | DRG 190 ==
LOC: SUATTDRO 11-22 03:37 → 2S 11-22 03:37 → 3E 11-24 19:49